=== PATIENT | female | born 1990 | race Caucasian/White ===

== ENCOUNTER 2016-05-14 11:35 | Emergency (ER) | payer OTHER ==
[~2016-05-14] VITALS: Ht 160 cm; Wt 79.4 kg
[~2016-05-14 11:35] MED LIST: ABILIFY10 MG PO; ADDERALL 30 MG30 MG PO; ADDERALL15 MG PO; ANTIBIOTIC PO; ATIVAN1 MG PO; BACTRIM DS 8001 TA1 PO; BIAXIN500 MG PO; CALCIUM + D 5001 TAB PO; CALCIUM WITH VI1 TAB PO; CARAFATE1 G1 PO; CELEXA20 MG PO; CLARITIN10 MG PO; CLEOCIN150 MG PO; CLINDAMYCIN150 MG PO; DELTASONE20 MG PO; DIFLUCAN150 MG PO; EES400 MG PO; FLEXERIL10 MG PO; HYDROCODONE BIT1 T11 PO; KENALOG0.1% TP; MACROBID100 M1 PO; MEDROL DOSEPAK4 MG PO; MOTRIN800 MG PO; NAPROSYN500 MG PO; NORCO 5-325 TA1 EACH PO; NYSTATIN100000 U/M PO; OVRAL-21 50 MCG1 TAB PO; PEPCID20 MG PO; ROBAXIN750 MG PO; ROBITUSSIN AC 10 MG/ PO; TOPCARE OMEPRAZ20 MG PO; TRAMADOL HCL50 MG PO; TYLENOL EXTRA500 M2 PO; TYLENOL W/CODEI1 TA4 PO; ULTRAM50 MG PO; VALIUM10 MG PO; VIBRAMYCIN100 MG PO; VICODIN 5/500 505 MG PO; VICODIN 500 MG-1 TAB PO; VISTARIL50 MG PO; VITAMIN D; VITAMIN D50000 I2 PO; ZITHROMAX Z PA250 MG PO; ZITHROMAX250 MG PO; ZOFRAN4 MG PO; ZOLOFT50 MG PO
[2016-05-14 12:14] LABS: BASO % 0.4 % (0.0-1.0); EOS # 0.2 10*3/uL (0.0-0.4); EOS % 2.7 % (1.0-4.0); HEMATOCRIT 42.7 % (37.0-47.0); HEMOGLOBIN 13.7 g/dl (12.0-16.0); LYMPH # 2.3 10*3/uL (1.3-4.4); LYMPH % 31.7 % (27.0-41.0); MEAN CELL VOLUME 89.3 fl (81.0-99.0); MEAN CORPUSCULAR HGB 28.7 pg (27.0-31.0); MEAN CORPUSCULAR HGB CONC 32.1 g/dl (33.0-37.0); MEAN PLATELET VOLUME 11.5 fl (9.6-12.3); MONO # 0.5 10*3/uL (0.1-1.0); MONO % 6.7 % (3.0-9.0); NEUT # 4.3 10*3/uL (2.3-7.9); NEUT % 58.2 % (47.0-73.0); PLATELET COUNT AUTOMATED 270 10*3/uL (130-400); RED BLOOD COUNT 4.78 10*6/uL (4.10-5.10); RED CELL DISTRI WIDTH 15.9 % (0-14.5); WHITE BLOOD COUNT 7.3 10*3/uL (4.8-10.8)
[2016-05-14 12:29] LABS: ALBUMIN 3.4 gm/dl (3.1-4.5); ALKALINE PHOSPHATASE 81 U/L (45-117); BILIRUBIN, TOTAL 0.4 mg/dl (0.2-1.0); BUN 9 mg/dl (7-24); CARBON DIOXIDE 27 mmol/L (21-32); CHLORIDE 108 mmol/L (98-107); EST GLOM FILT AFRICAN AMERICAN > 60 ml/min; GLUCOSE 106 mg/dL (65-99); SGOT/AST 35 IU/L (3-35); SGPT/ALT 48 U/L (12-78); SODIUM 141 mmol/L (136-145); TOTAL PROTEIN 7.1 gm/dL (6.4-8.2)
[2016-05-14] MEDS ORDERED: AVPAK AZITHROM250 M1 PO (12:43)
[2016-06-12] MEDS ORDERED: 'XANAX1 MG PO (17:17)
[2016-06-12] MEDS ORDERED: DIFLUCAN150 MG PO (19:55)
[2016-06-12] MEDS ORDERED: CIPRO250 MG PO (19:55)
[2016-06-13] MEDS ORDERED: ALPRAZOLAM0.25 M2 PO (17:44)
== END 2016-05-14 11:56 | disposition home or self-care (01) ==
LOC: ED 11:35
PROVIDERS: Registered Nurse
DX: J06.9 Acute upper respiratory infection, unspecified (principal); F17.200 Nicotine dependence, unspecified, uncomplicated; Z88.0 Allergy status to penicillin; Z88.6 Allergy status to analgesic agent; Z79.899 Other long term (current) drug therapy

== ENCOUNTER 2016-08-02 15:11 | Emergency (ER) | payer OTHER ==
[~2016-08-02] VITALS: Wt 81.6 kg
[~2016-08-02 15:11] MED LIST changes: +'XANAX1 MG PO; +ALPRAZOLAM0.25 M2 PO; +AVPAK AZITHROM250 M1 PO; +CIPRO250 MG PO
== END 2016-08-02 16:56 | disposition home or self-care (01) ==
LOC: ED 15:11
DX: S60.012A Contusion of left thumb without damage to nail, initial encounter (principal); R03.0 Elevated blood-pressure reading, without diagnosis of hypertension; F17.200 Nicotine dependence, unspecified, uncomplicated; F41.9 Anxiety disorder, unspecified; F32.9 Major depressive disorder, single episode, unspecified; F90.9 Attention-deficit hyperactivity disorder, unspecified type; Z88.0 Allergy status to penicillin; Z88.1 Allergy status to other antibiotic agents; Z88.6 Allergy status to analgesic agent; W18.09XA Striking against other object with subsequent fall, initial encounter; Y93.89 Activity, other specified; Y92.9 Unspecified place or not applicable; Y99.9 Unspecified external cause status

== ENCOUNTER 2016-09-06 11:38 | Emergency (ER) | payer OTHER ==
[~2016-09-06] VITALS: Ht 160 cm; Wt 99.8 kg
[2016-09-06] MEDS ORDERED: MEDROL DOSEPAK4 MG PO (13:20)
[2016-09-06] MEDS ORDERED: HYDROCODONE BIT1 T11 PO (13:20)
== END 2016-09-06 13:25 | disposition home or self-care (01) ==
LOC: ED 11:38
DX: S20.211A Contusion of right front wall of thorax, initial encounter (principal); F17.200 Nicotine dependence, unspecified, uncomplicated; Z88.0 Allergy status to penicillin; Z88.1 Allergy status to other antibiotic agents; Z88.6 Allergy status to analgesic agent; W18.39XA Other fall on same level, initial encounter; Y93.9 Activity, unspecified; Y92.9 Unspecified place or not applicable; Y99.9 Unspecified external cause status

== ENCOUNTER 2016-09-15 10:30 | Emergency (ER) | payer OTHER ==
[~2016-09-15] VITALS: Ht 160 cm; Wt 99.8 kg
[2016-09-15] MEDS ORDERED: XANAX0.25 MG PO (11:11)
== END 2016-09-15 15:04 | disposition home or self-care (01) ==
LOC: ED 10:30
DX: S20.211D Contusion of right front wall of thorax, subsequent encounter (principal); R03.0 Elevated blood-pressure reading, without diagnosis of hypertension; F17.200 Nicotine dependence, unspecified, uncomplicated; F90.9 Attention-deficit hyperactivity disorder, unspecified type; F41.9 Anxiety disorder, unspecified; F32.9 Major depressive disorder, single episode, unspecified; M62.82 Rhabdomyolysis; Z98.890 Other specified postprocedural states; Z98.51 Tubal ligation status; Z90.89 Acquired absence of other organs; Z88.0 Allergy status to penicillin; Z88.6 Allergy status to analgesic agent; Z88.8 Allergy status to other drugs, medicaments and biological substances; W19.XXXD Unspecified fall, subsequent encounter

== ENCOUNTER 2016-09-19 17:26 | Emergency (ER) | payer OTHER ==
[~2016-09-19] VITALS: Ht 160 cm; Wt 99.8 kg
[~2016-09-19 17:26] MED LIST changes: +XANAX0.25 MG PO
[2016-09-19] MEDS ORDERED: ZITHROMAX250 MG PO (18:59)
[2016-09-19] MEDS ORDERED: TYLENOL325 M1 PO (19:10)
== END 2016-09-19 18:47 | disposition home or self-care (01) ==
LOC: ED 17:26
DX: S83.92XA Sprain of unspecified site of left knee, initial encounter (principal); J02.9 Acute pharyngitis, unspecified; F17.200 Nicotine dependence, unspecified, uncomplicated; Z88.0 Allergy status to penicillin; Z88.1 Allergy status to other antibiotic agents; Z88.2 Allergy status to sulfonamides; Z88.6 Allergy status to analgesic agent; Z79.899 Other long term (current) drug therapy; W10.9XXA Fall (on) (from) unspecified stairs and steps, initial encounter; Y93.89 Activity, other specified; Y92.9 Unspecified place or not applicable; Y99.9 Unspecified external cause status

== ENCOUNTER 2016-10-21 14:37 | Emergency (ER) | payer OTHER ==
[~2016-10-21] VITALS: Ht 160 cm; Wt 81.6 kg
[~2016-10-21 14:37] MED LIST changes: +TYLENOL325 M1 PO
== END 2016-10-21 15:44 | disposition home or self-care (01) ==
LOC: ED 14:37
DX: M79.672 Pain in left foot (principal); F17.200 Nicotine dependence, unspecified, uncomplicated; Z98.890 Other specified postprocedural states; Z98.51 Tubal ligation status; Z88.0 Allergy status to penicillin; Z88.6 Allergy status to analgesic agent; Z88.8 Allergy status to other drugs, medicaments and biological substances

== ENCOUNTER 2016-10-26 19:39 | Emergency (ER) | payer OTHER ==
[~2016-10-26] VITALS: Ht 160 cm; Wt 83.9 kg
[2016-10-26] MEDS ORDERED: MEDROL DOSEPAK4 MG PO (21:51)
[2016-10-26] MEDS ORDERED: LIDEX 0.05% CRE15 GM T (21:51)
== END 2016-10-26 21:59 | disposition home or self-care (01) ==
LOC: ED 19:39
DX: M79.672 Pain in left foot (principal); R21 Rash and other nonspecific skin eruption; R51 Headache; F17.200 Nicotine dependence, unspecified, uncomplicated; Z98.890 Other specified postprocedural states; Z98.51 Tubal ligation status; Z90.89 Acquired absence of other organs; Z88.0 Allergy status to penicillin; Z88.6 Allergy status to analgesic agent; Z88.1 Allergy status to other antibiotic agents; Z88.8 Allergy status to other drugs, medicaments and biological substances; Y08.89XA Assault by other specified means, initial encounter; Y93.89 Activity, other specified; Y92.89 Other specified places as the place of occurrence of the external cause; Y99.9 Unspecified external cause status

== ENCOUNTER 2016-11-14 19:08 | Emergency (ER) | payer OTHER ==
[~2016-11-14] VITALS: Ht 160 cm; Wt 81.6 kg
[~2016-11-14 19:08] MED LIST changes: +LIDEX 0.05% CRE15 GM T
[2016-11-14] MEDS ORDERED: DOXYCYCLINE100 MG PO (19:31)
== END 2016-11-14 20:03 | disposition home or self-care (01) ==
LOC: ED 19:08
DX: L03.114 Cellulitis of left upper limb (principal); L03.113 Cellulitis of right upper limb; F17.200 Nicotine dependence, unspecified, uncomplicated; F90.9 Attention-deficit hyperactivity disorder, unspecified type; Z88.0 Allergy status to penicillin; Z88.1 Allergy status to other antibiotic agents; Z88.2 Allergy status to sulfonamides; Z88.6 Allergy status to analgesic agent; Z79.899 Other long term (current) drug therapy

== ENCOUNTER 2016-11-23 19:50 | Emergency (ER) | payer OTHER ==
[~2016-11-23] VITALS: Ht 160 cm; Wt 99.8 kg
[~2016-11-23 19:50] MED LIST changes: +DOXYCYCLINE100 MG PO
== END 2016-11-23 22:37 | disposition left against medical advice (07) ==
LOC: ED 19:50
DX: R22.9 Localized swelling, mass and lump, unspecified (principal); L29.9 Pruritus, unspecified; F17.200 Nicotine dependence, unspecified, uncomplicated; Z88.0 Allergy status to penicillin; Z88.1 Allergy status to other antibiotic agents; Z88.2 Allergy status to sulfonamides; Z88.6 Allergy status to analgesic agent; Z53.21 Procedure and treatment not carried out due to patient leaving prior to being seen by health care provider

== ENCOUNTER 2016-12-04 08:55 | Emergency (ER) | payer OTHER ==
[~2016-12-04] VITALS: Ht 160 cm; Wt 99.8 kg
== END 2016-12-04 10:46 | disposition left against medical advice (07) ==
LOC: ED 08:55
DX: S33.5XXA Sprain of ligaments of lumbar spine, initial encounter (principal); F17.200 Nicotine dependence, unspecified, uncomplicated; Z88.0 Allergy status to penicillin; Z88.1 Allergy status to other antibiotic agents; Z88.6 Allergy status to analgesic agent; X58.XXXA Exposure to other specified factors, initial encounter; Y93.9 Activity, unspecified; Y92.9 Unspecified place or not applicable; Y99.9 Unspecified external cause status

== ENCOUNTER 2017-02-12 19:30 | Emergency (ER) | payer OTHER ==
[~2017-02-12] VITALS: Wt 110.7 kg
[2017-02-12 20:02] LABS: BASO # 0.1 10*3/uL (0.0-0.1); BASO % 0.3 % (0.0-1.0); EOS # 0.2 10*3/uL (0.0-0.4); EOS % 1.3 % (1.0-4.0); HEMATOCRIT 40.8 % (37.0-47.0); HEMOGLOBIN 13.1 g/dl (12.0-16.0); LYMPH % 20.8 % (27.0-41.0); MEAN CELL VOLUME 90.5 fl (81.0-99.0); MEAN CORPUSCULAR HGB CONC 32.1 g/dl (33.0-37.0); MEAN PLATELET VOLUME 11.7 fl (9.6-12.3); NEUT # 10.1 10*3/uL (2.3-7.9); NEUT % 70.3 % (47.0-73.0); PLATELET COUNT AUTOMATED 346 10*3/uL (130-400); RED BLOOD COUNT 4.51 10*6/uL (4.10-5.10); RED CELL DISTRI WIDTH 17.7 % (0-14.5); WHITE BLOOD COUNT 14.3 10*3/uL (4.8-10.8)
[2017-02-12 20:12] LABS: ACT PARTIAL THROMBO TIME 27.5 SECONDS (20.8-31.5)
[2017-02-12 20:23] LABS: ALBUMIN 3.5 gm/dl (3.1-4.5); ALKALINE PHOSPHATASE 84 U/L (45-117); BUN 12 mg/dl (7-24); CHLORIDE 108 mmol/L (98-107); CREATININE 0.89 mg/dL (0.55-1.02); LIPASE 248 U/L (73-393); MAGNESIUM 2.2 mg/dL (1.5-2.1); POTASSIUM 4.1 mmol/L (3.5-5.1); SGOT/AST 21 IU/L (3-35); SGPT/ALT 37 U/L (12-78); SODIUM 140 mmol/L (136-145); TOTAL PROTEIN 7.8 gm/dL (6.4-8.2)
[2017-02-12 20:28] LABS: TROPONIN I < 0.015 ng/ml (<0.045)
== END 2017-02-12 21:29 | disposition left against medical advice (07) ==
LOC: ED 19:30
PROVIDERS: Nurse Practitioner Family
DX: R07.89 Other chest pain (principal); F17.200 Nicotine dependence, unspecified, uncomplicated; F90.9 Attention-deficit hyperactivity disorder, unspecified type; F41.9 Anxiety disorder, unspecified; F32.9 Major depressive disorder, single episode, unspecified; K21.9 Gastro-esophageal reflux disease without esophagitis; Z90.89 Acquired absence of other organs; Z98.890 Other specified postprocedural states; Z98.51 Tubal ligation status; Z88.0 Allergy status to penicillin; Z88.6 Allergy status to analgesic agent; Z88.1 Allergy status to other antibiotic agents; Z88.8 Allergy status to other drugs, medicaments and biological substances

== ENCOUNTER 2017-04-12 19:06 | Emergency (ER) | payer OTHER ==
[~2017-04-12] VITALS: Ht 160 cm; Wt 99.8 kg
[2017-04-12 19:47] LABS: BILIRUBIN NEGATIVE (NEGATIVE); BLOOD TRACE-INTACT (NEGATIVE); CLARITY SL CLOUDY (CLEAR); COLOR YELLOW (YELLOW); GLUCOSE NEGATIVE (NEGATIVE); KETONE TRACE (NEGATIVE); LEUKO ESTERASE 3+ (NEGATIVE); NITRITE NEGATIVE (NEGATIVE); PH 6.5 (5.0-9.0)
[2017-04-12 19:58] LABS: BASO % 0.3 % (0.0-1.0); EOS # 0.2 10*3/uL (0.0-0.4); EOS % 2.1 % (1.0-4.0); HEMATOCRIT 39.4 % (37.0-47.0); HEMOGLOBIN 12.7 g/dl (12.0-16.0); LYMPH # 2.2 10*3/uL (1.3-4.4); LYMPH % 24.7 % (27.0-41.0); MEAN CELL VOLUME 88.7 fl (81.0-99.0); MEAN CORPUSCULAR HGB 28.6 pg (27.0-31.0); MEAN CORPUSCULAR HGB CONC 32.2 g/dl (33.0-37.0); MEAN PLATELET VOLUME 11.5 fl (9.6-12.3); MONO # 0.6 10*3/uL (0.1-1.0); MONO % 7.2 % (3.0-9.0); NEUT # 5.8 10*3/uL (2.3-7.9); NEUT % 65.4 % (47.0-73.0); PLATELET COUNT AUTOMATED 352 10*3/uL (130-400); RED BLOOD COUNT 4.44 10*6/uL (4.10-5.10); RED CELL DISTRI WIDTH 14.5 % (0-14.5); WHITE BLOOD COUNT 8.9 10*3/uL (4.8-10.8)
[2017-04-12 19:58] LABS: BACTERIA 2+; EPITHELIAL CELLS 51-100
[2017-04-12 20:05] LABS: WBC 51-100 wbc/hpf (0-5)
[2017-04-12 20:13] LABS: ALBUMIN 3.6 gm/dl (3.1-4.5); ALKALINE PHOSPHATASE 66 U/L (45-117); BUN 8 mg/dl (7-24); CHLORIDE 102 mmol/L (98-107); CREATININE 0.74 mg/dL (0.55-1.02); POTASSIUM 3.6 mmol/L (3.5-5.1); SGOT/AST 31 IU/L (3-35); SGPT/ALT 32 U/L (12-78); SODIUM 139 mmol/L (136-145); TOTAL PROTEIN 7.4 gm/dL (6.4-8.2)
[2017-04-12 20:16] LABS: URINE AMPHETAMINES < 1000 (1000ng/ml); URINE BARBITURATES < 200 (200ng/ml); URINE BENZODIAZEPINES > 200 (200ng/ml); URINE CANNABINOIDS (THC) > 50 (50ng/ml); URINE COCAINE < 300 (300ng/ml); URINE METHADONE < 300 (300ng/ml); URINE OPIATES < 300 (300ng/ml); URINE PHENCYCLIDINE < 25 (25ng/ml)
[2017-04-12] MEDS ORDERED: FLAGYL500 MG PO (20:48)
[2017-04-12] MEDS ORDERED: ZOFRAN ODT4 MG SL (20:48)
[2017-04-12] MEDS ORDERED: CYCLOBENZAPRINE10 MG PO (20:49)
== END 2017-04-12 21:45 | disposition home or self-care (01) ==
LOC: ED 19:06
PROVIDERS: Emergency Medicine
DX: A59.9 Trichomoniasis, unspecified (principal); M54.32 Sciatica, left side; R11.2 Nausea with vomiting, unspecified; R50.9 Fever, unspecified; R53.1 Weakness; G43.909 Migraine, unspecified, not intractable, without status migrainosus; F17.200 Nicotine dependence, unspecified, uncomplicated; Z88.0 Allergy status to penicillin; Z88.1 Allergy status to other antibiotic agents; Z88.6 Allergy status to analgesic agent

== ENCOUNTER 2017-05-20 13:08 | Inpatient (IN) | payer SELFPAY ==
[~2017-05-20] VITALS: Ht 162.6 cm; Wt 112.7 kg
[2017-05-20] VITALS (14 sets, daily range): BP systolic 70–120; BP diastolic 19–84
[~2017-05-20 13:08] MED LIST changes: +CYCLOBENZAPRINE10 MG PO; +FLAGYL500 MG PO; +ZOFRAN ODT4 MG SL
[2017-05-20 13:33] LABS: BASO % 0.3 % (0.0-1.0); EOS # 0.1 10*3/uL (0.0-0.4); EOS % 1.1 % (1.0-4.0); HEMATOCRIT 39.4 % (37.0-47.0); HEMOGLOBIN 12.8 g/dl (12.0-16.0); LYMPH # 2.5 10*3/uL (1.3-4.4); MEAN CELL VOLUME 87.6 fl (81.0-99.0); MEAN CORPUSCULAR HGB 28.4 pg (27.0-31.0); MEAN CORPUSCULAR HGB CONC 32.5 g/dl (33.0-37.0); MEAN PLATELET VOLUME 10.9 fl (9.6-12.3); MONO # 0.7 10*3/uL (0.1-1.0); MONO % 6.1 % (3.0-9.0); NEUT % 70.2 % (47.0-73.0); PLATELET COUNT AUTOMATED 312 10*3/uL (130-400); WHITE BLOOD COUNT 11.4 10*3/uL (4.8-10.8)
[2017-05-20 13:41] LABS: ACT PARTIAL THROMBO TIME 26.5 SECONDS (20.8-31.5)
[2017-05-20 13:43] LABS: LIPASE 160 U/L (73-393)
[2017-05-20 13:51] LABS: ALBUMIN 3.9 gm/dl (3.1-4.5); ALKALINE PHOSPHATASE 93 U/L (45-117); BUN 13 mg/dl (7-24); CHLORIDE 103 mmol/L (98-107); CREATININE 0.87 mg/dL (0.55-1.02); POTASSIUM 4.1 mmol/L (3.5-5.1); SGOT/AST 17 IU/L (3-35); SGPT/ALT 28 U/L (12-78); SODIUM 139 mmol/L (136-145); TOTAL PROTEIN 7.6 gm/dL (6.4-8.2)
[2017-05-20 13:52] LABS: TROPONIN I < 0.015 ng/ml (<0.045)
[2017-05-20 15:54] LABS: BILIRUBIN NEGATIVE (NEGATIVE); BLOOD NEGATIVE (NEGATIVE); CLARITY CLEAR (CLEAR); COLOR YELLOW (YELLOW); GLUCOSE NEGATIVE (NEGATIVE); KETONE NEGATIVE (NEGATIVE); LEUKO ESTERASE NEGATIVE (NEGATIVE); NITRITE NEGATIVE (NEGATIVE); PH 5.5 (5.0-9.0); SPECIFIC GRAVITY <= 1.005 (1.005-1.030); UROBILINOGEN 0.2 E.U./dl (0.2-1.0)
[2017-05-20 16:03] LABS: URINE AMPHETAMINES < 1000 (1000ng/ml); URINE BARBITURATES < 200 (200ng/ml); URINE BENZODIAZEPINES < 200 (200ng/ml); URINE CANNABINOIDS (THC) < 50 (50ng/ml); URINE COCAINE < 300 (300ng/ml); URINE METHADONE < 300 (300ng/ml); URINE OPIATES < 300 (300ng/ml)
[2017-05-20 16:04] LABS: URINE PHENCYCLIDINE < 25 (25ng/ml)
[2017-05-20 16:07] LABS: WBC 0-2 wbc/hpf (0-5)
[2017-05-20] MEDS ORDERED: ALPRAZOLAM0.5 M3 PO (21:58)
[2017-05-20] MEDS ORDERED: TRAZODONE50 MG PO (21:59)
[2017-05-21] VITALS: BP 100/50
[2017-05-21 04:00] VITALS: BP 100/52
[2017-05-21 05:59] LABS: BASO % 0.3 % (0.0-1.0); EOS # 0.2 10*3/uL (0.0-0.4); EOS % 1.9 % (1.0-4.0); HEMOGLOBIN 11.6 g/dl (12.0-16.0); LYMPH # 3.2 10*3/uL (1.3-4.4); LYMPH % 37.1 % (27.0-41.0); MEAN CELL VOLUME 88.5 fl (81.0-99.0); MEAN CORPUSCULAR HGB 28.5 pg (27.0-31.0); MEAN CORPUSCULAR HGB CONC 32.2 g/dl (33.0-37.0); MEAN PLATELET VOLUME 11.2 fl (9.6-12.3); MONO # 0.6 10*3/uL (0.1-1.0); NEUT # 4.7 10*3/uL (2.3-7.9); NEUT % 53.4 % (47.0-73.0); PLATELET COUNT AUTOMATED 268 10*3/uL (130-400); RED BLOOD COUNT 4.07 10*6/uL (4.10-5.10); RED CELL DISTRI WIDTH 15.9 % (0-14.5); WHITE BLOOD COUNT 8.7 10*3/uL (4.8-10.8)
[2017-05-21 06:13] LABS: ALBUMIN 3.1 gm/dl (3.1-4.5); BUN 8 mg/dl (7-24); CHLORIDE 110 mmol/L (98-107); CHOLESTEROL 125 mg/dL (<200); CREATININE 0.63 mg/dL (0.55-1.02); PHOSPHOROUS 4.4 mg/dL (2.5-4.9); POTASSIUM 3.9 mmol/L (3.5-5.1); SGOT/AST 14 IU/L (3-35); SGPT/ALT 20 U/L (12-78); SODIUM 143 mmol/L (136-145); TOTAL PROTEIN 6.2 gm/dL (6.4-8.2); TRIGLYCERIDES 96 mg/dl (<150); VLDL CHOLESTEROL 19 mg/dL (6-40)
[2017-05-21 06:17] LABS: ACT PARTIAL THROMBO TIME 27.7 SECONDS (20.8-31.5)
[2017-05-21 06:19] LABS: ALKALINE PHOSPHATASE 74 U/L (45-117); FREE T4 1.03 ng/dl (0.76-1.46); HDL CHOLESTEROL 37 mg/dl (40-60); LDL CHOLESTEROL 69 mg/dL (9-159)
[2017-05-21 08:00] VITALS: BP 90/34
[2017-05-21 08:14] LABS: VITAMIN D, 25-HYDROXY 12.4 ng/mL (30-100)
[2017-05-21 12:00] VITALS: BP 88/43
[2017-05-21] MEDS ORDERED: VISTARIL25 MG PO (15:52)
[2017-05-21] MEDS ORDERED: VITAMIN D-32000 UNIT PO (15:52)
[2017-05-21] MEDS ORDERED: NATURE'S BLEND F1 MG PO (15:52)
[2017-05-21 16:00] VITALS: BP 109/63
== END 2017-05-21 17:00 | disposition home or self-care (01) | DRG 316 ==
LOC: ED 13:08 → ICCU 17:06 → EDHOLD 17:06 → ICCU 19:13 → 4E 05-21 12:41
PROVIDERS: Internal Medicine; Physician Assistant
DX: I95.9 Hypotension, unspecified (principal); E87.8 Other disorders of electrolyte and fluid balance, not elsewhere classified; R07.9 Chest pain, unspecified; F32.9 Major depressive disorder, single episode, unspecified; F41.9 Anxiety disorder, unspecified; R06.82 Tachypnea, not elsewhere classified; D64.9 Anemia, unspecified; F17.210 Nicotine dependence, cigarettes, uncomplicated; E55.9 Vitamin D deficiency, unspecified; E53.8 Deficiency of other specified B group vitamins; D72.829 Elevated white blood cell count, unspecified; Z88.0 Allergy status to penicillin; Z88.2 Allergy status to sulfonamides; Z88.6 Allergy status to analgesic agent; Z88.8 Allergy status to other drugs, medicaments and biological substances; Z79.899 Other long term (current) drug therapy; Z98.51 Tubal ligation status; Z82.0 Family history of epilepsy and other diseases of the nervous system; Z80.9 Family history of malignant neoplasm, unspecified

== ENCOUNTER 2017-05-30 01:19 | Emergency (ER) | payer OTHER ==
[~2017-05-30] VITALS: Ht 162.5 cm; Wt 108.9 kg
[~2017-05-30 01:19] MED LIST changes: +ALPRAZOLAM0.5 M3 PO; +NATURE'S BLEND F1 MG PO; +TRAZODONE50 MG PO; +VISTARIL25 MG PO; +VITAMIN D-32000 UNIT PO
[2017-05-30 02:09] LABS: BILIRUBIN NEGATIVE (NEGATIVE); BLOOD 2+ (NEGATIVE); CLARITY SL CLOUDY (CLEAR); COLOR YELLOW (YELLOW); GLUCOSE NEGATIVE (NEGATIVE); KETONE TRACE (NEGATIVE); LEUKO ESTERASE NEGATIVE (NEGATIVE); NITRITE NEGATIVE (NEGATIVE); PH 5.5 (5.0-9.0); SPECIFIC GRAVITY 1.025 (1.005-1.030); UROBILINOGEN 0.2 E.U./dl (0.2-1.0)
[2017-05-30 02:13] LABS: EPITHELIAL CELLS 15-20
[2017-05-30 02:14] LABS: BACTERIA TRACE
[2017-05-30] MEDS ORDERED: PRILOSEC20 M1 PO (02:18)
[2017-05-30] MEDS ORDERED: ZOFRAN ODT4 MG SL (02:18)
[2017-05-30] MEDS ORDERED: ATARAX,VISTARIL50 MG PO (02:18)
== END 2017-05-30 03:00 | disposition home or self-care (01) ==
LOC: ED 01:19
PROVIDERS: Emergency Medicine Emergency Medical Services
DX: K21.9 Gastro-esophageal reflux disease without esophagitis (principal); G43.909 Migraine, unspecified, not intractable, without status migrainosus; R11.0 Nausea; F41.9 Anxiety disorder, unspecified; F17.200 Nicotine dependence, unspecified, uncomplicated; Z98.51 Tubal ligation status; Z98.890 Other specified postprocedural states; Z79.899 Other long term (current) drug therapy; Z88.0 Allergy status to penicillin; Z88.6 Allergy status to analgesic agent; Z88.1 Allergy status to other antibiotic agents; Z88.8 Allergy status to other drugs, medicaments and biological substances

== ENCOUNTER 2017-08-03 21:00 | Emergency (ER) | payer OTHER ==
[~2017-08-03] VITALS: Ht 160 cm; Wt 111.6 kg
[~2017-08-03 21:00] MED LIST changes: +ATARAX,VISTARIL50 MG PO; +PRILOSEC20 M1 PO
[2017-08-03 21:20] LABS: BILIRUBIN NEGATIVE (NEGATIVE); BLOOD NEGATIVE (NEGATIVE); CLARITY CLEAR (CLEAR); COLOR YELLOW (YELLOW); GLUCOSE NEGATIVE (NEGATIVE); KETONE NEGATIVE (NEGATIVE); LEUKO ESTERASE NEGATIVE (NEGATIVE); NITRITE NEGATIVE (NEGATIVE); PH 5.5 (5.0-9.0); SPECIFIC GRAVITY <= 1.005 (1.005-1.030); UROBILINOGEN 0.2 E.U./dl (0.2-1.0)
[2017-08-03 21:29] LABS: URINE AMPHETAMINES < 1000 (1000ng/ml); URINE BARBITURATES < 200 (200ng/ml); URINE BENZODIAZEPINES > 200 (200ng/ml); URINE CANNABINOIDS (THC) < 50 (50ng/ml); URINE COCAINE < 300 (300ng/ml); URINE METHADONE < 300 (300ng/ml); URINE OPIATES < 300 (300ng/ml)
[2017-08-03 21:30] LABS: URINE PHENCYCLIDINE < 25 (25ng/ml)
[2017-08-03 21:33] LABS: BACTERIA 1+; RBC 0-2 rbc/hpf (0-2); WBC 0-2 wbc/hpf (0-5)
[2017-08-03 21:52] LABS: BASO % 0.4 % (0.0-1.0); EOS # 0.2 10*3/uL (0.0-0.4); HEMATOCRIT 36.8 % (37.0-47.0); HEMOGLOBIN 11.7 g/dl (12.0-16.0); LYMPH # 2.6 10*3/uL (1.3-4.4); LYMPH % 23.7 % (27.0-41.0); MEAN CELL VOLUME 86.6 fl (81.0-99.0); MEAN CORPUSCULAR HGB 27.5 pg (27.0-31.0); MEAN CORPUSCULAR HGB CONC 31.8 g/dl (33.0-37.0); MEAN PLATELET VOLUME 10.7 fl (9.6-12.3); MONO # 0.7 10*3/uL (0.1-1.0); MONO % 6.5 % (3.0-9.0); NEUT # 7.3 10*3/uL (2.3-7.9); PLATELET COUNT AUTOMATED 362 10*3/uL (130-400); RED BLOOD COUNT 4.25 10*6/uL (4.10-5.10); RED CELL DISTRI WIDTH 16.1 % (0-14.5); WHITE BLOOD COUNT 10.9 10*3/uL (4.8-10.8)
[2017-08-03 22:07] LABS: ACETAMINOPHEN (TYLENOL) < 2.0 ug/ml (10-30); ALBUMIN 3.6 gm/dl (3.1-4.5); ALKALINE PHOSPHATASE 89 U/L (45-117); BUN 6 mg/dl (7-24); CHLORIDE 107 mmol/L (98-107); CREATININE 0.78 mg/dL (0.55-1.02); POTASSIUM 3.1 mmol/L (3.5-5.1); SGOT/AST 24 IU/L (3-35); SGPT/ALT 36 U/L (12-78); SODIUM 142 mmol/L (136-145); TOTAL PROTEIN 7.6 gm/dL (6.4-8.2)
[2017-08-03 22:15] LABS: B-hCG (QUALITATIVE) NEGATIVE (NEGATIVE)
[2017-08-03] MEDS ORDERED: PHARBEDRYL PO (23:08)
[2017-08-03] MEDS ORDERED: KETOROLAC10 MG PO (23:17)
== END 2017-08-03 23:18 | disposition home or self-care (01) ==
LOC: ED 21:00
PROVIDERS: Emergency Medicine Emergency Medical Services
DX: F41.1 Generalized anxiety disorder (principal); F43.0 Acute stress reaction; F90.9 Attention-deficit hyperactivity disorder, unspecified type; F32.9 Major depressive disorder, single episode, unspecified; K21.9 Gastro-esophageal reflux disease without esophagitis; E78.00 Pure hypercholesterolemia, unspecified; G43.909 Migraine, unspecified, not intractable, without status migrainosus; E66.01 Morbid (severe) obesity due to excess calories; F17.200 Nicotine dependence, unspecified, uncomplicated; Z98.890 Other specified postprocedural states; Z98.51 Tubal ligation status; Z90.89 Acquired absence of other organs; Z79.899 Other long term (current) drug therapy; Z88.0 Allergy status to penicillin; Z88.6 Allergy status to analgesic agent; Z88.8 Allergy status to other drugs, medicaments and biological substances

== ENCOUNTER 2017-10-22 15:43 | Emergency (ER) | payer OTHER ==
[~2017-10-22] VITALS: Ht 160 cm; Wt 113.4 kg
[~2017-10-22 15:43] MED LIST changes: +KETOROLAC10 MG PO; +PHARBEDRYL PO
[2017-10-22] MEDS ORDERED: PREDNISONE10 MG PO (16:00)
[2017-10-22 16:15] LABS: BASO # 0.1 10*3/uL (0.0-0.1); BASO % 0.6 % (0.0-1.0); EOS # 0.3 10*3/uL (0.0-0.4); EOS % 2.6 % (1.0-4.0); HEMATOCRIT 39.3 % (37.0-47.0); LYMPH # 3.5 10*3/uL (1.3-4.4); MEAN CELL VOLUME 83.3 fl (81.0-99.0); MEAN CORPUSCULAR HGB 25.4 pg (27.0-31.0); MEAN CORPUSCULAR HGB CONC 30.5 g/dl (33.0-37.0); MEAN PLATELET VOLUME 12.4 fl (9.6-12.3); MONO # 0.8 10*3/uL (0.1-1.0); MONO % 7.4 % (3.0-9.0); NEUT # 5.6 10*3/uL (2.3-7.9); NEUT % 55.1 % (47.0-73.0); PLATELET COUNT AUTOMATED 266 10*3/uL (130-400); RED BLOOD COUNT 4.72 10*6/uL (4.10-5.10); RED CELL DISTRI WIDTH 18.6 % (0-14.5); WHITE BLOOD COUNT 10.2 10*3/uL (4.8-10.8)
[2017-10-22 16:29] LABS: ALBUMIN 3.6 gm/dl (3.1-4.5); ALKALINE PHOSPHATASE 87 U/L (45-117); BUN 8 mg/dl (7-24); CHLORIDE 104 mmol/L (98-107); CREATININE 0.74 mg/dL (0.55-1.02); POTASSIUM 3.3 mmol/L (3.5-5.1); SGOT/AST 30 IU/L (3-35); SGPT/ALT 38 U/L (12-78); SODIUM 139 mmol/L (136-145); TOTAL PROTEIN 7.2 gm/dL (6.4-8.2)
== END 2017-10-22 17:07 | disposition home or self-care (01) ==
LOC: ED 15:43
PROVIDERS: Nurse Practitioner Family
DX: L30.9 Dermatitis, unspecified (principal); M79.631 Pain in right forearm; Z88.0 Allergy status to penicillin; Z88.1 Allergy status to other antibiotic agents; Z88.6 Allergy status to analgesic agent

== ENCOUNTER 2017-11-06 19:36 | Emergency (ER) | payer OTHER ==
[~2017-11-06] VITALS: Ht 160 cm; Wt 111.1 kg
[~2017-11-06 19:36] MED LIST changes: +PREDNISONE10 MG PO
[2017-11-06] MEDS ORDERED: ZITHROMAX250 MG PO (20:14)
== END 2017-11-06 20:20 | disposition home or self-care (01) ==
LOC: ED 19:36
DX: J02.9 Acute pharyngitis, unspecified (principal); R05 Cough; R50.9 Fever, unspecified; F17.200 Nicotine dependence, unspecified, uncomplicated; Z88.0 Allergy status to penicillin; Z88.1 Allergy status to other antibiotic agents; Z88.6 Allergy status to analgesic agent

== ENCOUNTER 2018-01-08 12:28 | Emergency (ER) | payer OTHER ==
[~2018-01-08] VITALS: Ht 160 cm; Wt 102.1 kg
--- NOTE | ~2018-01-08 | EKG ---
[place], [place] ELECTROCARDIOGRAM REPORT NAME: SUJIT HOPE UNIT #: [id number] ROOM: DOCTOR: EPIPHANY DRAFT REPORT BIRTHDATE: [birth year] [facility] Test Date: 2018-01-08 Test Time: 13:09:37 Pat Name: SUJIT HOPE Department: Room: Gender: F Supervisor Metalizing: Marci Lujan : 1990 Requested By: SUNSHINE ARRIAGA Order Number: [id number] Reading MD: Christine Freedman MD Measurements Intervals [place] Rate: 61 P: 16 OK: 132 QRS: 103 QRSD: 99 T: 19 QT: 435 QTc: 439 Interpretive Statements Sinus rhythm Borderline right axis deviation Low voltage, precordial leads Electronically Signed On 01-08-2018 16:51:49 PDT by Christine Freedman MD CM:EKGRPT:ELECTROCARDIOGRAM REPORT [id number] SUNSHINE ARRIAGA EPIPHANY DRAFT REPORT SUNSHINE ARRIAGA
[2018-01-08 13:18] LABS: BASO % 0.4 % (0.0-1.0); EOS # 0.1 10*3/uL (0.0-0.4); EOS % 1.4 % (1.0-4.0); HEMOGLOBIN 12.4 g/dl (12.0-16.0); LYMPH # 2.2 10*3/uL (1.3-4.4); LYMPH % 21.1 % (27.0-41.0); MEAN CELL VOLUME 85.1 fl (81.0-99.0); MEAN CORPUSCULAR HGB 26.4 pg (27.0-31.0); MEAN PLATELET VOLUME 11.5 fl (9.6-12.3); MONO # 0.5 10*3/uL (0.1-1.0); MONO % 4.8 % (3.0-9.0); NEUT # 7.4 10*3/uL (2.3-7.9); NEUT % 71.9 % (47.0-73.0); PLATELET COUNT AUTOMATED 295 10*3/uL (130-400); RED CELL DISTRI WIDTH 20.2 % (0-14.5); WHITE BLOOD COUNT 10.3 10*3/uL (4.8-10.8)
[2018-01-08 13:24] LABS: BILIRUBIN NEGATIVE (NEGATIVE); BLOOD NEGATIVE (NEGATIVE); CLARITY CLEAR (CLEAR); COLOR YELLOW (YELLOW); GLUCOSE NEGATIVE (NEGATIVE); KETONE NEGATIVE (NEGATIVE); LEUKO ESTERASE NEGATIVE (NEGATIVE); NITRITE NEGATIVE (NEGATIVE); PH 6.5 (5.0-9.0); SPECIFIC GRAVITY <= 1.005 (1.005-1.030); UROBILINOGEN 0.2 E.U./dl (0.2-1.0)
[2018-01-08 13:35] LABS: URINE AMPHETAMINES < 1000 (1000ng/ml); URINE BARBITURATES < 200 (200ng/ml); URINE BENZODIAZEPINES < 200 (200ng/ml); URINE CANNABINOIDS (THC) > 50 (50ng/ml); URINE COCAINE < 300 (300ng/ml); URINE METHADONE < 300 (300ng/ml); URINE OPIATES < 300 (300ng/ml)
[2018-01-08 13:38] LABS: ALBUMIN 3.3 gm/dl (3.1-4.5); ALKALINE PHOSPHATASE 89 U/L (45-117); BUN 2 mg/dl (7-24); CHLORIDE 107 mmol/L (98-107); CREATININE 0.81 mg/dL (0.55-1.02); POTASSIUM 3.5 mmol/L (3.5-5.1); SGOT/AST 15 IU/L (3-35); SGPT/ALT 23 U/L (12-78); SODIUM 141 mmol/L (136-145); TOTAL PROTEIN 7.2 gm/dL (6.4-8.2)
[2018-01-08 13:39] LABS: URINE PHENCYCLIDINE < 25 (25ng/ml)
[2018-01-08 13:41] LABS: TROPONIN I < 0.015 ng/ml (<0.045)
[2018-01-08 13:52] LABS: BACTERIA TRACE
[2018-01-08] MEDS ORDERED: CLINDAMYCIN HC300 MG PO (14:35)
[2018-04-09] MEDS ORDERED: XANAX1 MG PO (10:50)
[2018-04-09] MEDS ORDERED: AMPHETAMINE/DEX30 MG PO (10:50)
[2018-04-09] MEDS ORDERED: REXULTI1 MG PO (10:51)
[2018-04-09] MEDS ORDERED: TRAZODONE150 MG PO (10:51)
[2018-04-09] MEDS ORDERED: SUBOXONE 8 MG-1 EACH SL (10:52)
[2018-04-09] MEDS ORDERED: ZOLOFT100 MG PO (12:06)
[2018-04-10] MEDS ORDERED: NORCO 5-325 TA1 EACH PO (16:12)
== END 2018-01-08 14:42 | disposition home or self-care (01) ==
LOC: ED 12:28
PROVIDERS: Nurse Practitioner Family
DX: L02.416 Cutaneous abscess of left lower limb (principal); R51 Headache; R07.9 Chest pain, unspecified; F17.200 Nicotine dependence, unspecified, uncomplicated; Z88.0 Allergy status to penicillin; Z88.1 Allergy status to other antibiotic agents; Z88.6 Allergy status to analgesic agent

== ENCOUNTER 2018-01-12 10:11 | Emergency (ER) | payer OTHER ==
[~2018-01-12] VITALS: Ht 160 cm; Wt 102.1 kg
[~2018-01-12 10:11] MED LIST changes: +CLINDAMYCIN HC300 MG PO
[2018-04-09] MEDS ORDERED: AMPHETAMINE/DEX30 MG PO (10:50)
[2018-04-09] MEDS ORDERED: XANAX1 MG PO (10:50)
[2018-04-09] MEDS ORDERED: REXULTI1 MG PO (10:51)
[2018-04-09] MEDS ORDERED: TRAZODONE150 MG PO (10:51)
[2018-04-09] MEDS ORDERED: SUBOXONE 8 MG-1 EACH SL (10:52)
[2018-04-09] MEDS ORDERED: ZOLOFT100 MG PO (12:06)
[2018-04-10] MEDS ORDERED: NORCO 5-325 TA1 EACH PO (16:12)
== END 2018-01-12 11:13 | disposition home or self-care (01) ==
LOC: ED 10:11
DX: J02.9 Acute pharyngitis, unspecified (principal); R03.0 Elevated blood-pressure reading, without diagnosis of hypertension; K21.9 Gastro-esophageal reflux disease without esophagitis; G43.909 Migraine, unspecified, not intractable, without status migrainosus; E66.01 Morbid (severe) obesity due to excess calories; Z88.0 Allergy status to penicillin; Z88.1 Allergy status to other antibiotic agents; Z88.6 Allergy status to analgesic agent; Z87.891 Personal history of nicotine dependence

== ENCOUNTER 2018-01-23 04:42 | Emergency (ER) | payer OTHER ==
[~2018-01-23] VITALS: Ht 161.2 cm; Wt 99.8 kg
--- NOTE | ~2018-01-23 | EKG ---
[place], [place] ELECTROCARDIOGRAM REPORT NAME: SUJIT HOPE UNIT #: [id number] ROOM: DOCTOR: EPIPHANY DRAFT REPORT BIRTHDATE: [birth year] [facility] Test Date: 2018-01-23 Test Time: 04:50:42 Pat Name: SUJIT HOPE Department: Room: Gender: F Grey Roll Worker: : 1990 Requested By: JOHN FLOREZ Order Number: [id number] Reading MD: Pedro Paulson MD Measurements Intervals [place] Rate: 85 P: 19 MI: 135 QRS: 7 QRSD: 84 T: 12 QT: 399 QTc: 475 Interpretive Statements Sinus rhythm Low voltage, precordial leads Compared to ECG 01/08/2018 13:09:37 No significant changes Electronically Signed On 01-24-2018 11:04:10 PDT by Pedro Paulson MD CM:EKGRPT:ELECTROCARDIOGRAM REPORT [id number] JOHN FLOREZ MD EPIPHDILSHAD DRAFT REPORT JOHN FLOREZ MD
[2018-04-09] MEDS ORDERED: AMPHETAMINE/DEX30 MG PO (10:50)
[2018-04-09] MEDS ORDERED: XANAX1 MG PO (10:50)
[2018-04-09] MEDS ORDERED: REXULTI1 MG PO (10:51)
[2018-04-09] MEDS ORDERED: TRAZODONE150 MG PO (10:51)
[2018-04-09] MEDS ORDERED: SUBOXONE 8 MG-1 EACH SL (10:52)
[2018-04-09] MEDS ORDERED: ZOLOFT100 MG PO (12:06)
[2018-04-10] MEDS ORDERED: NORCO 5-325 TA1 EACH PO (16:12)
== END 2018-01-23 05:11 | disposition home or self-care (01) ==
LOC: ED 04:42
DX: R07.9 Chest pain, unspecified (principal); R06.02 Shortness of breath; K21.9 Gastro-esophageal reflux disease without esophagitis; G43.909 Migraine, unspecified, not intractable, without status migrainosus; E66.01 Morbid (severe) obesity due to excess calories; F17.200 Nicotine dependence, unspecified, uncomplicated; Z88.0 Allergy status to penicillin; Z88.2 Allergy status to sulfonamides; Z88.6 Allergy status to analgesic agent; Z88.8 Allergy status to other drugs, medicaments and biological substances; Z98.51 Tubal ligation status

== ENCOUNTER 2018-04-16 12:31 | Emergency (ER) | payer OTHER ==
[~2018-04-16] VITALS: Ht 160 cm; Wt 99.3 kg
[~2018-04-16 12:31] MED LIST changes: +AMPHETAMINE/DEX30 MG PO; +REXULTI1 MG PO; +SUBOXONE 8 MG-1 EACH SL; +TRAZODONE150 MG PO; +XANAX1 MG PO; +ZOLOFT100 MG PO
[2018-04-16] MEDS ORDERED: LATU20TA PO (12:38)
[2018-04-16] MEDS ORDERED: NORCO 10-325 T1 EACH PO (14:50)
== END 2018-04-16 14:51 | disposition home or self-care (01) ==
LOC: ED 12:31
DX: S22.31XD Fracture of one rib, right side, subsequent encounter for fracture with routine healing (principal); R07.81 Pleurodynia; G43.909 Migraine, unspecified, not intractable, without status migrainosus; E66.01 Morbid (severe) obesity due to excess calories; Z88.0 Allergy status to penicillin; Z88.8 Allergy status to other drugs, medicaments and biological substances; Z88.2 Allergy status to sulfonamides; Z79.899 Other long term (current) drug therapy; W10.8XXD Fall (on) (from) other stairs and steps, subsequent encounter

== ENCOUNTER → 2018-10-11 | Outpatient (CLI) | payer OTHER ==
[~2018-10-11] MED LIST changes: +DICYCLOMINE HYD10 MG PO; +KEFLEX500 M1 PO; +LATU20TA PO; +NORCO 10-325 T1 EACH PO; +XANAX2 M1 PO
== END | disposition home or self-care (01) ==
LOC: US 10:30
DX: K80.20 Calculus of gallbladder without cholecystitis without obstruction (principal)

== ENCOUNTER 2019-01-06 14:24 | Emergency (ER) | payer OTHER ==
[~2019-01-06] VITALS: Ht 160 cm; Wt 102.5 kg
[~2019-01-06 14:24] MED LIST changes: -KEFLEX500 M1 PO
[2019-01-06] MEDS ORDERED: KEFLEX500 M1 PO (14:47)
[2019-01-06] MEDS ORDERED: ATARAX,VISTARIL50 MG PO (14:47)
== END 2019-01-06 15:03 | disposition home or self-care (01) ==
LOC: ED 14:24
DX: R21 Rash and other nonspecific skin eruption (principal); L73.9 Follicular disorder, unspecified; B37.0 Candidal stomatitis; G43.909 Migraine, unspecified, not intractable, without status migrainosus; E66.01 Morbid (severe) obesity due to excess calories; F17.200 Nicotine dependence, unspecified, uncomplicated; Z88.0 Allergy status to penicillin; Z88.8 Allergy status to other drugs, medicaments and biological substances; Z88.2 Allergy status to sulfonamides

== ENCOUNTER 2019-01-25 22:22 | Inpatient (IN) | payer OTHER ==
[~2019-01-25] VITALS: Ht 160 cm; Wt 104.4 kg
--- NOTE | ~2019-01-25 | EKG ---
[place], [place] ELECTROCARDIOGRAM REPORT NAME: SUJIT HOPE UNIT #: [id number] ROOM: [facility] DOCTOR: TRESAANY DRAFT REPORT BIRTHDATE: [birth year] [facility] Test Date: 2019-01-26 Test Time: 01:23:26 Pat Name: SUJIT HOPE Department: Room: [facility] Gender: F Clinical Analyst: : 1990 Requested By: MICAH KAUR Order Number: [id number] Reading MD: Addi Slater MD Measurements Intervals [place] Rate: 86 P: 37 ID: 126 QRS: 21 QRSD: 79 T: 12 QT: 371 QTc: 444 Interpretive Statements Sinus rhythm Baseline wander in lead(s) II,III,aVF,V1,V2 Compared to ECG 01/23/2018 04:50:42 No significant changes Electronically Signed On 01-26-2019 12:22:43 PDT by Addi Slater MD CM:EKGRPT:ELECTROCARDIOGRAM REPORT [id number] 1222 MICAH KAUR MD EPIPHANY DRAFT REPORT MICAH KAUR MD
--- NOTE | ~2019-01-25 | EKG ---
[place], [place] ELECTROCARDIOGRAM REPORT NAME: SUJIT HOPE UNIT #: [id number] ROOM: [facility] DOCTOR: DEVAN DRAFT REPORT BIRTHDATE: [birth year] [facility] Test Date: 2019-01-25 Test Time: 22:35:55 Pat Name: SUJIT HOPE Department: ED Room: [facility] Gender: F Gear Hobber Operator: : 1990 Requested By: MICAH KAUR Order Number: [id number] Reading MD: Addi Slater MD Measurements Intervals [place] Rate: 99 P: 14 ME: 115 QRS: 38 QRSD: 82 T: 35 QT: 353 QTc: 453 Interpretive Statements Sinus rhythm Compared to ECG 01/23/2018 04:50:42 No significant changes Electronically Signed On 01-26-2019 12:21:52 PDT by Addi Slater MD CM:EKGRPT:ELECTROCARDIOGRAM REPORT 1221 MICAH KAUR MD EPIPHANY DRAFT REPORT MICAH KAUR MD
--- NOTE | ~2019-01-25 | EKG ---
[place], [place] ELECTROCARDIOGRAM REPORT NAME: SUJIT HOPE UNIT #: [id number] ROOM: [facility] DOCTOR: DEVAN DRAFT REPORT BIRTHDATE: [birth year] [facility] Test Date: 2019-01-26 Test Time: 03:55:37 Pat Name: SUJIT HOPE Department: Room: [facility] Gender: F Tank Farm Operator: : 1990 Requested By: MICAH KAUR Order Number: [id number] Reading MD: Addi Slater MD Measurements Intervals [place] Rate: 83 P: 40 MN: 122 QRS: 33 QRSD: 87 T: 18 QT: 391 QTc: 460 Interpretive Statements Sinus rhythm Baseline wander in lead(s) I,III,aVR,aVL,V1 Compared to ECG 01/23/2018 04:50:42 No significant changes Electronically Signed On 01-26-2019 12:23:03 PDT by Addi Slater MD CM:EKGRPT:ELECTROCARDIOGRAM REPORT [id number] 1223 MICAH KAUR MD EPIPHANY DRAFT REPORT MICAH KAUR MD
[~2019-01-25 22:22] MED LIST changes: +KEFLEX500 M1 PO
[2019-01-25 22:25] VITALS: BP 115/65
--- NOTE | 2019-01-25 22:30 | NUR ---
PATIENTS ARRIVED TO THE ROOM AND STATED THAT HE WAS HERE FOR THE PATEITN. I EXPLAINED TO THE THAT SINCE WE HAD MANY TESTS TO DO ON THE PATIENT AND THAT ROOM WOULD BE FULL THAT HE WOULD NEED TO WAIT IN THE FAMILY WAITING AREA OF THE ED UNTIL THE TESTS WERE DONE THEN I WOULD COME AND GET HIM. I EXPLAINED THAT THIS WOULD PROBABLY TAKEN ANYWHERE FROM 20 TO 30 MIN. HE WAS UNWILLING TO WAIT AND REQUESTED TO COME IN AND I EXPLAINED THAT THERE WOULD NOT BE ENOUGH ROOM AND THAT IT WOULD ONLY BE A SHORT TIME AGAIN. THE WENT TO THE WAITING ROOM BUT SOON AFTER RETURNED TO THE ROOM AND CAME IN. HE WAS VERY AGITATED AND STATED THAT HE NEEDED TO BE IN THE ROOM BECAUSE IT WAS HIS . I TOLD THE THAT HE IS ALLOWED IN THE ROOM BUT WAS ASKED TO WAIT IN THE FAMILY WAITING AREA WHILE THE TEST WERE BEING DONE TO MAKE ROOM FOR STAFF. THE WAS VERY ANGRY BUT CALM AND REQUESTED THAT I NOT BE THE NURSE. SHANNAN RN WAS CHARGE AT THE TIME AND SHE WAS NOTIFIED OF THE SITUATION. PROPER INTERVENTIONS ARE BEING MADE.
--- NOTE | 2019-01-25 22:45 | NUR ---
PT'SD ASKED TO SPEAK WITH THE "NURSE IN CHARGE AT THIS TIME" CHARGE NURSE I WENT TO THE PT'S ROOM WHERE THE WAS STANDING IN THE HALLWAY, I ESCORTED INTO THE FAMILY WAITING ROOM AND ASKED HIM TO INFORM ME OF THE PROBLEM THAT HE WAS HAVING. HE INFOMRED THIS RN THAT "THEY MADE ME WAIT IN THE LOBBY FOR TOO LONG WHEN I GOT HERE" AND "THEN WHEN I GOT BACK TO THE ROOM I WAS TOLD BY THE MALE NURSE THAT I WAS NOT ALLOUD TO STAY IN THE ROOM WITH MY " PT'S STATED THAT "THE MALE NURSE" (JANNA) "TOLD ME THAT THIS WAS HIS ER AND THAT HE COULD MAKE UP THE RULES HE WISHES" PT'S ALSO STATES "HE (JANNA) WAS THEN FLIRTING WITH MY " THIS RN INFORMED PT'S THAT WITH AN AMBULANCE IT IS CUSTOMARY FOR REGISTRAION ASK FAMILY TO WAIT IN THE LOBBY UNTIL THEY ARE INFORMED THAT FAMILY CAN COME BACK INTO THE ED. I ALSO INFORMED HIM THAT WITH A CHEST PAIN PT IT IS OUR PROTOCOL TO INITIATE MULTIPLE TESTS AT ONCE AND THAT WITH THIS THERE ARE MULTIPLE NURSES IN THE ROOM AND THAT DURING THE CHEST XRAY FAMILY IS ASKED TO STEP OUT OF THE ROOM FOR THEIR SAFETY. PT'S STATES THAT HE UNDERSTANDS EVEERYTHING AND STATES "I JUST DIDN'T LIKE THE ATTITUDE THAT I GOT" THEN REQUEST THAT A "FEMALE NURSE TAKES OVER HER CARE" I INFORMED THE THAT I AM THE CHARGE NURSE BUT THAT THERE IS A NURSING SNOW PLOW OPERATOR THAT HE COULD SPEAK TO IF HE WAS NOT SATISFIED WITH OUR CONVERSATION. PT'S VOICES THAT HE DOES NOT WISH TO SPEAK TO DEEDEE SALINAS AT THIS TIME ANS THAT " LONG WE GET A FEMALE NURSE WE WILL BE FINE" JANNA GAVE REPORT TO ISAIAS AND SHE TOOK OVER PT CARE. DEEDEE SALINAS NOTIFIED.
[2019-01-25 22:50] LABS: BASO % 0.4 % (0.0-1.0); EOS # 0.2 10*3/uL (0.0-0.4); EOS % 1.8 % (1.0-4.0); HEMATOCRIT 38.4 % (37.0-47.0); HEMOGLOBIN 12.4 g/dl (12.0-16.0); LYMPH # 3.6 10*3/uL (1.3-4.4); LYMPH % 33.5 % (27.0-41.0); MEAN CELL VOLUME 86.5 fl (81.0-99.0); MEAN CORPUSCULAR HGB 27.9 pg (27.0-31.0); MEAN CORPUSCULAR HGB CONC 32.3 g/dl (33.0-37.0); MEAN PLATELET VOLUME 11.1 fl (9.6-12.3); MONO # 0.8 10*3/uL (0.1-1.0); MONO % 7.7 % (3.0-9.0); NEUT % 56.3 % (47.0-73.0); PLATELET COUNT AUTOMATED 318 10*3/uL (130-400); RED BLOOD COUNT 4.44 10*6/uL (4.10-5.10); RED CELL DISTRI WIDTH 16.8 % (0-14.5); WHITE BLOOD COUNT 10.6 10*3/uL (4.8-10.8)
[2019-01-25 23:03] LABS: ACT PARTIAL THROMBO TIME 24.7 SECONDS (20.0-32.1); INTERNATIONAL NORM RATIO 0.9 (2.0-3.5)
--- NOTE | 2019-01-25 23:06 | NUR ---
POISON CONTROL NOTIFIED OF THE PATIENT TAKING 100 ZZZQUIL GENERIC PILLS. VITALS AND UPDATED CONDITION WERE GIVEN TO PC WHO STATED THAT BECAUSE HER VITALS ARE STABLE AND THAT SHE IS NOT HAVING MOST OF THE SXS THAT ARISE FROM OVERDOSING ON ZZZQUIL THAT SHE WILL MORE THEN LIKELY BE OK BUT STILL MUST BE EVALUATED. PC SUGGESTED THAT AN EKG BE OBTAINED, VITALS DONE Q30M, LAB WORK DONE, AND THE PATIENT BE EVALUATED FOR 6HRS.
[2019-01-25 23:08] LABS: ALBUMIN 3.6 gm/dl (3.1-4.5); ALKALINE PHOSPHATASE 97 U/L (45-117); BUN 18 mg/dl (7-24); CHLORIDE 106 mmol/L (98-107); CREATININE 0.85 mg/dL (0.55-1.02); POTASSIUM 3.7 mmol/L (3.5-5.1); SGOT/AST 27 IU/L (3-35); SODIUM 138 mmol/L (136-145); TOTAL PROTEIN 7.6 gm/dL (6.4-8.2)
[2019-01-25 23:12] VITALS: BP 115/61
[2019-01-25 23:13] LABS: SGPT/ALT 36 U/L (12-78)
[2019-01-25 23:15] LABS: TROPONIN I < 0.015 ng/ml (<0.045)
[2019-01-25 23:16] LABS: ACETAMINOPHEN (TYLENOL) < 5.0 ug/ml (10-30); ETHYL ALCOHOL < 3.0 mg/dl (<3)
[2019-01-25 23:28] VITALS: BP 118/72
--- NOTE | 2019-01-25 23:34 | NUR ---
PATIENT REFUSES TO PROVIDE ME URINE AT THIS TIME AND STATES SHE WILL TRY AFTER SHE GETS SOMETHING FOR ANXIETY AND PAIN.
--- NOTE | 2019-01-26 00:03 | NUR ---
NURSING OFF TRACK BETTING MANAGER IS IN ROOM SPEAKING WITH PATIENT AT THIS TIME.
--- NOTE | 2019-01-26 00:18 | NUR ---
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 NO OPEN WOUNDS OR DRAINAGE NOTED
[2019-01-26 00:48] VITALS: BP 101/50
[2019-01-26 00:54] LABS: BILIRUBIN NEGATIVE (NEGATIVE); BLOOD 1+ (NEGATIVE); CLARITY CLEAR (CLEAR); COLOR YELLOW (YELLOW); GLUCOSE NEGATIVE (NEGATIVE); KETONE NEGATIVE (NEGATIVE); LEUKO ESTERASE NEGATIVE (NEGATIVE); NITRITE NEGATIVE (NEGATIVE); SPECIFIC GRAVITY >= 1.030 (1.005-1.030); UROBILINOGEN 0.2 E.U./dl (0.2-1.0)
[2019-01-26 01:03] LABS: BACTERIA 3+
[2019-01-26 01:07] LABS: URINE AMPHETAMINES < 1000 (1000ng/ml); URINE BARBITURATES < 200 (200ng/ml); URINE BENZODIAZEPINES < 200 (200ng/ml); URINE CANNABINOIDS (THC) > 50 (50ng/ml); URINE COCAINE < 300 (300ng/ml); URINE METHADONE < 300 (300ng/ml); URINE OPIATES < 300 (300ng/ml)
[2019-01-26 01:13] LABS: URINE PHENCYCLIDINE < 25 (25ng/ml)
--- NOTE | 2019-01-26 02:00 | NUR ---
A 28, admitted to ICCU, under the services of MELIZA Munoz DO with a diagnosis of CHEST DISCOMFORT, SUICIDAL IDEATION. Chief complaint is SUICIDAL IDEATION. Patient arrived via bed from ER. Monitor applied. Initial assessment completed. Vital signs taken and recorded. MELIZA MUNOZ DO notified of admission to the unit. Orders received. See assessment for past medical history, medications and allergies. Patient and/or family oriented to unit. [facility] ICCU visitation policy reviewed. Clothing/patient valuable form completed. PATIENT ORIENTED TO UNIT ICCU PATIENT BEING VULGAR AND USING PROFANE LANGUAGE AND THREATENING STAFF MEMBERS UPON ARRIVAL. PATIENT THREATENING TO LEAVE UNIT AND RIPPED IV SITE OUT OF LEFT ARM. DR. SIMONS NOTIFIED, NURSING BLOCK SEALER NOTIFIED AND ARRIVED TO SPEAK TO THE PATIENT. SHEMAR GREEN
--- NOTE | 2019-01-26 02:12 | NUR ---
PT ITA REQUEST TO RETRIEVE PT PHONE FROM HER.PT ON UNIT IN ICCU AT THIS TIME.SUMEETIENMarcella ADVISED NO VISITORS ALLOWED AT THIS TIME.THIS RN TO ICCU UNIT TO ASK PT IF SHE WOULD LIKE HER BOYFRIEND TO HAVE HER PHONE.PT STATES "YES BUT GIVE ME A FEW MOMENTS I AM TEXTING HIM RIGHT NOW".THIS RN WAITED FOR PT TO BE COMPLETED.PT HANDED THIS RN HER CELL PHONE.RN SHEMAR AWARE THIS RN TOOK PT CELL PHONE TO BOYFRIEND.THIS RN TO WAITING ROOM WHERE BOYFRIEND WAS AWAITING.RN CHRIS SALCEDO WITNESSED THIS RN GIVING PT BOYFRIEND HER CELL PHONE.PT SUMEETIENMarcella (SAMANTHA)LEFT ER WAITING ROOM WITH PT CELL PHONE.
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
--- NOTE | 2019-01-26 02:49 | NUR ---
PATIENT STANDING IN MIDDLE OF ICCU SCREAMING AT STAFF. REFUSES TO USE BEDSIDE COMMODE DESPITE GIVEN PROPER PRIVACY TO DO SO. THREATENING STAFF WITH PHYSICAL VIOLENCE IF WE ATTEMPT TO COME NEAR HER BED.
--- NOTE | 2019-01-26 03:30 | NUR ---
pt refusing mrsa swab at this time.
--- NOTE | 2019-01-26 03:55 | NUR ---
PATIENT GIVEN VISTARIL, RESTORIL AND BENADRYL AT THIS TIME FOR ANXIETY AND AGITATION. EKG IN WITH PATIENT AT THIS TIME. PATIENT IS AMMENDABLE TO HAVING THIS TEST DONE.
--- NOTE | 2019-01-26 07:27 | NUR ---
JN XIONG NOTIFIED OF CONSULT, PT KNOWN TO HER. PATIENT CONDITION REVIEWED. SHE STATES SHE WILL BE IN TO SEE THE PATIENT TODAY.
--- NOTE | 2019-01-26 09:00 | NUR ---
PT'S SIGNIFICANT OTHER IN TO SEE HER. HE WOKE HER UP AFTER BIENG ASKED NOT TO. PT VERY QUICKLY BECAME VERBALLY ABUSIVE & THREATENING STAFF. PT THREATENING TO LEAVE. I INFORMED HER THAT JN XIONG, WILL BE IN TO SEE HER TO EVAULUATE HER. PT STATING SHE HAS HER OWN COUNSELOR SHE IS NOT GOING TO SEE JN.."I'M NOT GETTING BILLED TWICE." I IN FORMED PT THAT HER COUNSELOR DOES NOT HAVE PRIVELAGES HERE AND CAN NOT BE THE ONE TO EVALUATE HER. PT CONTINUES TO STATE SHE IS LEAVING. BILINGUAL OFFICE ASSISTANT AND SECURITY ASKED TO SEE PT.
--- NOTE | 2019-01-26 09:15 | NUR ---
KAYLEE MELGOZA,RICKSHAW DRIVER IN TO SPEAK WITH PT. PT CONTINUED TO BE VERBALLY ABUSIVE TO RICKSHAW DRIVER. PT WANTING TO USE THE BATHROOM. PT REFUSED TO USE AVAILABLE BSC. PT STATES THAT "YOU ARE VIOTATING MY PT RIGHTS BY REFUSING MY A BATHROOM." I DID THEN CALL DR FABIAN AND HE OK'S THAT PT CAN BE WALKED TI THE BATHROOM. PT THEN WALKED BY KAYLEE,NURSING RICKSHAW DRIVER, TO THE BATHROOM.
--- NOTE | 2019-01-26 09:30 | NUR ---
PT DENIES SUICIDAL THOUGHT OR IDEATIONS AT THIS TIME.
--- NOTE | 2019-01-26 09:51 | NUR ---
DR NANCE IN TO SEE PT. HE INFORMED PT AND PT'S PLAN OF CARE. PT REMAINS ARGUMENTATIVE. PT'S SIGNIFICANT OTHER ALSO UPDTED.
--- NOTE | 2019-01-26 10:09 | NUR ---
PT REFUSED MORPHINE FOR HER CHEST PAIN. SHE STATES THAT "THAT WILL MAKE ME SLLP ALL DAY..IT'S TOO MUCH. I COULD TAKE A VICODEN AND I ASKED FOR SOMETHING FOR ANXIETY...LIKE A XANAX." DR NANCE UPDATED. NEW ORDERS RECEIVED.
--- NOTE | 2019-01-26 10:25 | NUR ---
MEDICATED PT PER ONE TIME ORDER WITH VICODEN FOR PT'S C/O LEFT SIDED CHEST PAIN THAT THAT INCREASES WITH DEEP BREATH AND INSPIRATION. PT STATES "I KNOW IT IS MY HEART THOUGH...I HAVE BEEN THROUGH THIS MANY TIMES." PT RATES PAIN 8/10 ON PAIN SCALE. ALSO MEDICATED PT WITH XANAX FOR HER C/O ANXIETY.
--- NOTE | 2019-01-26 10:58 | NUR ---
met with client who is known to me for many years, she reports that she got upset because yesterday was her sisters birthday and she was murdered and she said her son is in [facility], client said that her boyfriend thought she took medications and she denies that now, she reports to me she wants to go home and she denies any suicidal ideation now,she has no psychosis and she is alert and oriented in all spheres. she can go home with no risk and she will follow up at [facility] where she is a client. she can be difficult and impulsive, but she is cooperative at this point with me. i recommend that she can go home and follow up outpatient.
--- NOTE | 2019-01-26 11:00 | NUR ---
JN XIONG IN TO SEE PT. AFTER SPEAKING WITH PT SHE DEEMED THAT PT IS NOT A HARM TO HERSELF OR OTHERS. DR NANCE AND DR FABIAN NOTIFIED. THEY ARE GOING TO D/C PT HOME.
--- NOTE | 2019-01-26 11:10 | NUR ---
PT REQUESTING SCRIPT FOR XANAX AND EITHER 800MG MOTRIN OR VICODEN. PT STATES VICODEN RELIEF HER EARLIER CHEST PAIN. DR NANCE STATED PT NEEDS TO FOLLOW UP WITH HER PRIMARY DOCTOR AND FOLLOW UP WITH [facility]. PT CAN TAKE OTC IBUPROFEN.
--- NOTE | 2019-01-26 11:20 | NUR ---
PT REQUESTING TO SPEAK WITH DOCTOR. I INFORMED DR FABIAN AND HE STATED THEY WILL BE BACK TO SEE PT AFTER MAKING ROUNDS ON THEIR OTHER PT'S THEY HAVE NOT SEEN YET. PT REFUSING TO WAIT. PT VERBALYY ABUSIVE AGAIN.
--- NOTE | 2019-01-26 11:30 | NUR ---
Discharge instructions reviewed with patient/family. Patient receptive and verbalizes understanding. Follow-up care arranged. Written instructions given to patient/family. MINERVA THOMAS
== END 2019-01-26 11:30 | disposition home or self-care (01) | DRG 206 ==
LOC: ED 22:22 → EDHOLD 01-26 01:17 → ICCU 01-26 01:28
PROVIDERS: Emergency Medicine Emergency Medical Services; ADMIT Family Medicine
DX: M94.0 Chondrocostal junction syndrome [Tietze] (principal); F33.2 Major depressive disorder, recurrent severe without psychotic features; R45.851 Suicidal ideations; I24.9 Acute ischemic heart disease, unspecified; K21.9 Gastro-esophageal reflux disease without esophagitis; F41.9 Anxiety disorder, unspecified; R00.0 Tachycardia, unspecified; F90.9 Attention-deficit hyperactivity disorder, unspecified type; F19.10 Other psychoactive substance abuse, uncomplicated; G43.909 Migraine, unspecified, not intractable, without status migrainosus; M54.32 Sciatica, left side; E66.01 Morbid (severe) obesity due to excess calories; F60.3 Borderline personality disorder; Z88.6 Allergy status to analgesic agent; Z88.0 Allergy status to penicillin; Z88.8 Allergy status to other drugs, medicaments and biological substances; Z79.899 Other long term (current) drug therapy; Z98.891 History of uterine scar from previous surgery; Z98.51 Tubal ligation status; Z81.8 Family history of other mental and behavioral disorders; Z82.3 Family history of stroke; Z80.9 Family history of malignant neoplasm, unspecified; Z83.3 Family history of diabetes mellitus; Z82.5 Family history of asthma and other chronic lower respiratory diseases; Z82.49 Family history of ischemic heart disease and other diseases of the circulatory system; Z76.5 Malingerer [conscious simulation]

== ENCOUNTER 2019-01-28 04:47 | Inpatient (IN) | payer OTHER ==
[~2019-01-28] VITALS: Ht 160 cm; Wt 107.3 kg
[2019-01-28 05:18] LABS: URINE AMPHETAMINES < 1000 (1000ng/ml); URINE BARBITURATES < 200 (200ng/ml); URINE BENZODIAZEPINES > 200 (200ng/ml); URINE CANNABINOIDS (THC) > 50 (50ng/ml); URINE COCAINE < 300 (300ng/ml); URINE METHADONE < 300 (300ng/ml); URINE OPIATES < 300 (300ng/ml)
[2019-01-28 05:22] LABS: URINE PHENCYCLIDINE < 25 (25ng/ml)
[2019-01-28 05:23] LABS: BASO % 0.4 % (0.0-1.0); EOS # 0.2 10*3/uL (0.0-0.4); EOS % 1.6 % (1.0-4.0); HEMATOCRIT 38.4 % (37.0-47.0); HEMOGLOBIN 12.2 g/dl (12.0-16.0); LYMPH # 2.8 10*3/uL (1.3-4.4); LYMPH % 24.1 % (27.0-41.0); MEAN CELL VOLUME 89.1 fl (81.0-99.0); MEAN CORPUSCULAR HGB 28.3 pg (27.0-31.0); MEAN CORPUSCULAR HGB CONC 31.8 g/dl (33.0-37.0); MEAN PLATELET VOLUME 10.9 fl (9.6-12.3); MONO # 0.8 10*3/uL (0.1-1.0); MONO % 6.7 % (3.0-9.0); NEUT # 7.7 10*3/uL (2.3-7.9); NEUT % 66.9 % (47.0-73.0); PLATELET COUNT AUTOMATED 324 10*3/uL (130-400); RED BLOOD COUNT 4.31 10*6/uL (4.10-5.10); RED CELL DISTRI WIDTH 16.7 % (0-14.5); WHITE BLOOD COUNT 11.4 10*3/uL (4.8-10.8)
[2019-01-28 05:39] LABS: ALBUMIN 3.7 gm/dl (3.1-4.5); ALKALINE PHOSPHATASE 93 U/L (45-117); BUN 15 mg/dl (7-24); CHLORIDE 105 mmol/L (98-107); CREATININE 0.89 mg/dL (0.55-1.02); LIPASE 142 U/L (73-393); POTASSIUM 3.5 mmol/L (3.5-5.1); SGOT/AST 17 IU/L (3-35); SGPT/ALT 35 U/L (12-78); SODIUM 139 mmol/L (136-145); TOTAL PROTEIN 7.8 gm/dL (6.4-8.2)
[2019-01-28 05:47] LABS: TROPONIN I < 0.015 ng/ml (<0.045)
--- NOTE | 2019-01-28 05:51 | NUR ---
CRITICAL LAB LA 2.3, NOTIFIED.
[2019-01-28 07:30] VITALS: BP 143/79
--- NOTE | 2019-01-28 07:50 | NUR ---
PT ARRIVES TO FLOOR VERY UNCOOPERATIVE, YELLING AND DEMANDING PAIN MEDICATIONS, EXPLAINED ADMISSION PROCESS TO PT. PT DOES HAVE NOTABLE SCATTERED SCABS TO ARMS AND LEGS, PT STATES SHE PICKS, PT REFUSES ASSESSMENT OF SCABBED AREAS.
--- NOTE | 2019-01-28 07:50 | NUR ---
Time: 749 A 28 year old FEMALE admitted to 4E under services of ALEX PAREDES DO. Pt. arrived via wheel chair from ER. Chief complaint: MID EPIGASTRIC PAIN, NAUSEA. BAO MEIER
[2019-01-28 08:00] VITALS: BP 119/74
--- NOTE | 2019-01-28 08:38 | NUR ---
PT OFF FLOOR FOR ULTRASOUND AT THIS TIME.
--- NOTE | 2019-01-28 08:38 | NUR ---
MEDICATED WITH MORPHINE, ZOFRAN PER PRN ORDER FOR COMPLAINTS OF MID EPIGASTRIC PAIN AND NAUSEA. WILL MONITOR FOR EFFECTIVENESS.
--- NOTE | 2019-01-28 09:28 | NUR ---
DR MURRAY MADE AWARE OF NEW CONSULT.
[2019-01-28] MEDS ORDERED: KLONOPIN1 M1 PO (09:32)
[2019-01-28] MEDS ORDERED: TRAZODONE100 MG PO (09:32)
[2019-01-28] MEDS ORDERED: DOXEPIN25 MG PO (09:32)
[2019-01-28] MEDS ORDERED: NEURONTIN300 MG PO (09:33)
--- NOTE | 2019-01-28 10:03 | NUR ---
SUJIT HOPE [id number] Please refer to the physician's history and physical for past medical history, comorbid conditions, and allergies. Diagnosis: ACUTE ABDOMINAL PAIN GALLSTONES Zaire Score: 21,LOW OR NO RISK WOUND DESCRIPTIONS: This nurse went to evaluate patient and patient stated what are you doing in here. I don't need wound care. I am a case picker due to my anxitey. Upon evalation patient stated that she uses hydrocortisone and will use that upon her return home and she doesn't want any type of follow up. Several intact scabs noted to BLE's this was the only area I was allow to visulaized per patient request. No redness surrounding areas at time of assessment no draiange noted at time of assessment. Surface the patient is resting on: Position Pro SKIN PREVENTION RECOMMENDATION: 1. Pressure redistribution support surface as appropriate 2. Elevate heels 3. Remove boots/TEDS every shift and reapply 4. Head of bed 30 degrees as tolerated 5. Assess nutrition and hydration 6. Manage moisture 7. Avoid the use of containment devices while in bed 8. Use absorptive products on surfaces limit layers of linens on bed 9. Turn and reposition every 1-2 hours in bed and every 1 hour in chair as tolerated 10. Weight shifts every 15 minutes while up in chair 11. Offloading with pillows or device to keep heels elevated off bed 12. Monitor skin at least every shift 13. Inspect under medical devices twice a day WOUND TREATMENT RECOMMENDATIONS: Hydrocortison per patient request. Cleanse affected areas with soap and water pat area dry then apply aquaphor bid.
--- NOTE | 2019-01-28 10:08 | NUR ---
This nurse informed nurse caring for patient Svetlana Ramos regarding wound care recommendations and when the physicians round to please notify them.
--- NOTE | 2019-01-28 10:49 | NUR ---
DR FOLEY MADE AWARE OF CARE MANAGEMENT TRANSFER.
--- NOTE | 2019-01-28 11:00 | NUR ---
DR FOLEY MADE AWARE OF PT'S MULTIPLE SCABBED AREAS TO BILATERAL LOWER LEGS AND WOUND CARE REC.
--- NOTE | 2019-01-28 11:49 | NUR ---
MEDICATED WITH DILAUDID PER PRN ORDER FOR COMPLAINTS OF 10/10 UPPER ABD PAIN. WILL MONITOR FOR EFFECTIVENESS.
[2019-01-28 11:50] LABS: BILIRUBIN NEGATIVE (NEGATIVE); BLOOD NEGATIVE (NEGATIVE); CLARITY CLOUDY (CLEAR); COLOR YELLOW (YELLOW); GLUCOSE NEGATIVE (NEGATIVE); KETONE NEGATIVE (NEGATIVE); LEUKO ESTERASE NEGATIVE (NEGATIVE); NITRITE NEGATIVE (NEGATIVE); SPECIFIC GRAVITY 1.015 (1.005-1.030); UROBILINOGEN 0.2 E.U./dl (0.2-1.0)
[2019-01-28 12:00] VITALS: BP 117/75
[2019-01-28 12:02] LABS: BACTERIA TRACE; WBC 0-2 wbc/hpf (0-5)
--- NOTE | 2019-01-28 12:30 | NUR ---
PT'S BOYFRIEND AT DESK REQUESTING FOR HER IV TO BE UNHOOKED. SHE WANTS TO SHOWER. EXPLAINED THAT I GAVE HER IV DILAUDID RECENTLY AND WOULD LIKE SOME TIME BEFORE SHE GETS INTO THE SHOWER IT IS A FALL RISK. VERBALIZES UNDERSTANDING.
--- NOTE | 2019-01-28 13:25 | NUR ---
CALLED INTO PT'S ROOM, PT VERY AGITATED, CURSING. STATING DR NOE STATED SHE WAS TO GET TORADOL ALONG WITH HER DILAUDID. SPOKE WITH DR FOLEY. ORDER RECEIVED.
--- NOTE | 2019-01-28 14:15 | NUR ---
IN TO GIVE PT 1X DOSE OF IV TORADOL, PT IMMEDIATELY STATES "THAT BETTER BE SOMETHING FOR PAIN" EXPLAINED THAT IT IS TORADOL, WHICH IS A ONE TIME DOSE. FOUND A CIGARETTE AND DATA COLLECTOR ON PT'S BEDSIDE TABLE. EXPLAINED TO PT THAT I WOULD NEED TO LOCK IT UP, SHE THEN STATES "I DON'T NEED TO TOUCH ANYTHING, STATES SHE WOULD PUT THE CIGARETTE IN HER PURSE, EXPLAINED THAT IS FINE, BUT REINFORCED THE NON-SMOKING POLICY, SHE STATES "IF I WANT TO SMOKE, I'LL JUST GO OUTSIDE", EXPLAINED THAT EVEN OFF THE HOSPITAL FLOOR IS AGAINST THE NON-SMOKING POLICY, PT THEN BECOMES MORE AGGRESSIVE AND STATES THAT THIS NURSE IS TOO PATHETIC TO DO ANYTHING FOR HER BECAUSE I WOULDN'T UNHOOK HER IV DIRECTLY AFTER GIVING IV DILAUDID AND SHE WANTS A DIFFERENT NURSE. EXPLAINED I WAS THERE NOW TO WRAP HER IV. STATES SHE WANTS ANOTHER NURSE NOW. REHAB NURSING TECH AND CHARGE NURSE MADE AWARE.
--- NOTE | 2019-01-28 14:30 | NUR ---
ROLL UP HELPER CALLED. FIRE SPRINKLER APPARATUS INSPECTOR,SECURITY,AND DR. FOLEY ENVOLVED. THIS RN RESUMED PATIENT CARE DO TO PATIENT REQUEST OF PREVIOUS RN CONFLICT. PATIENT AND DEMANDING,DEMEANING.
[2019-01-28 16:00] VITALS: BP 129/82
--- NOTE | 2019-01-28 16:31 | NUR ---
MEDICATED WITH DILAUDID FOR C/O MIDEPIGASTRIC/CHEST PAIN. PATIENT C/O IV IN A "BAD PALCE" AND WOULD LIKE IT CHANGED. NEW 20 L WRIST STARTED.
--- NOTE | 2019-01-28 17:00 | NUR ---
THIS RN ACCIDENTLY LEFT IV LOCK ON BEDSIDE TABLE UNDER PAPERS, THE FOUND AND CAME TO NURSES STATION AND PUT IT AT NURSES STATION.
--- NOTE | 2019-01-28 18:30 | NUR ---
IV INFILTRATED, AND PATIENT REFUSED VISTARIL. DR. FOLEY BACK IN TO SEE PATIENT BECAUSE HER AND FAMILY REQUESTING TRANSFERED OUT.
--- NOTE | 2019-01-28 18:38 | NUR ---
HERB TOOK CONSULT INFORMATION FOR DR. GRIFFITH.
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
--- NOTE | 2019-01-28 20:22 | NUR ---
upon enter floor, patient was disruptive, billgerant towards staff, shift director, and ip director. Patient asked repeatly to calm down and be respectful of hospital policies and staff. Requested patient to be complaint care. patient contined to shoot profanity, and slam doors. decission made for patient to leave [place]. [facility] called, [facility] sc[employer] present. patient escorted with her belongings off floor and out of building. Dr. Rox smalls of [place].
== END 2019-01-28 20:22 | disposition left against medical advice (07) | DRG 445 ==
LOC: ED 04:47 → 4E 06:28 → EDHOLD 06:28 → 4E 06:50
PROVIDERS: Emergency Medicine; ADMIT Internal Medicine
DX: K80.20 Calculus of gallbladder without cholecystitis without obstruction (principal); E87.2 Acidosis; Z68.41 Body mass index [BMI] 40.0-44.9, adult; E66.01 Morbid (severe) obesity due to excess calories; D72.829 Elevated white blood cell count, unspecified; R73.9 Hyperglycemia, unspecified; F32.9 Major depressive disorder, single episode, unspecified; F90.9 Attention-deficit hyperactivity disorder, unspecified type; M54.32 Sciatica, left side; F60.3 Borderline personality disorder; G43.909 Migraine, unspecified, not intractable, without status migrainosus; Z53.21 Procedure and treatment not carried out due to patient leaving prior to being seen by health care provider; F41.9 Anxiety disorder, unspecified; E55.9 Vitamin D deficiency, unspecified; F17.210 Nicotine dependence, cigarettes, uncomplicated; Z71.6 Tobacco abuse counseling; Z88.0 Allergy status to penicillin; Z88.6 Allergy status to analgesic agent; Z88.2 Allergy status to sulfonamides; Z88.8 Allergy status to other drugs, medicaments and biological substances; Z98.891 History of uterine scar from previous surgery; Z98.51 Tubal ligation status; Z81.8 Family history of other mental and behavioral disorders; Z83.3 Family history of diabetes mellitus; Z82.49 Family history of ischemic heart disease and other diseases of the circulatory system; Z80.8 Family history of malignant neoplasm of other organs or systems; Z82.5 Family history of asthma and other chronic lower respiratory diseases; Z79.899 Other long term (current) drug therapy

== ENCOUNTER → 2019-02-05 | Day surgery (SDC) | payer OTHER ==
[~2019-02-05] VITALS: Ht 160 cm; Wt 103.0 kg
[~2019-02-05] MED LIST changes: +DOXEPIN25 MG PO; +HYDROCODONE-AC1 EAC1 PO; +KLONOPIN1 M1 PO; +NEURONTIN300 MG PO; +TRAZODONE100 MG PO
--- NOTE | ~2019-02-05 | O ---
[place], [place] OPERATIVE NOTE NAME: SUJIT HOPE [facility] #: [id number] UNIT #: [id number] ROOM: DOCTOR: HUMBERTO MURRAY MD BIRTHDATE: [birth year] DOS: 02/05/2019 PREOPERATIVE DIAGNOSIS: Symptomatic gallstones. POSTOPERATIVE DIAGNOSIS: Symptomatic gallstones. PROCEDURE: Laparoscopic cholecystectomy. SURGEON: Humberto Murray MD DIRECTOR OF ACCOUNTING: JODI. ANESTHESIA: General with endotracheal intubation. INDICATIONS: This is a 28-year-old lady who is here for a laparoscopic cholecystectomy for symptomatic gallstones. The procedure and its complications were explained to the patient in detail preoperatively. Complications that were discussed included but were not limited to bleeding, infection, hematoma/seroma/abscess formation, biloma formation, inadvertent injury to common bile duct, incisional hernia formation, prolonged pain and she agreed to proceed. DESCRIPTION OF PROCEDURE: After identifying the patient, the patient was brought to the operating suite and laid in the supine position. After induction of general anesthesia, timeout procedure was called and the parts were then painted and draped in the usual sterile fashion. An incision below the umbilicus in a transverse fashion was made. The skin and the subcutaneous tissue was incised in line of the incision. The fascia was incised vertically and 2 stay sutures with 0 Vicryl were taken on either side. The peritoneum was opened and a 12 mm Milad port was introduced into the peritoneal cavity and pneumoperitoneum was created. Under direct vision, an epigastric incision of 10 mm and two 5 mm incisions were made in the right upper quadrant and appropriate size ports were introduced. The gallbladder was retracted superiorly and laterally. The cystic duct and the cystic artery were carefully dissected. Critical view of safety was obtained and the triangle of Calot was clearly identified. Each of these structures were then clipped 3 times and cut between the first and the second clip. The gallbladder was then removed from the bed of the gallbladder with the help of electrocautery. It was placed in an EndoCatch bag and removed from the peritoneal cavity and sent for histopathological diagnosis. After hemostasis was confirmed in the liver bed, the right upper quadrant and epigastric ports were removed and there was no bleeding seen. The umbilical port was also removed and the 2 stay sutures were tied together and an additional 0 Vicryl suture was taken in a [id number] fashion to close the fascial defect. Edges of the skin were infiltrated with 1% plain lidocaine and approximated with the help of 4-0 Vicryl in a subcuticular running fashion. Dressings were placed. The patient tolerated the procedure well. She was extubated uneventfully and brought back to the recovery room in a stable fashion. There were no complications. Dr. Humberto Murray, the attending surgeon, was present throughout the operating case. [place], [place] OPERATIVE NOTE NAME: SUJIT HOPE UNIT #: [id number] ROOM: DOCTOR: HUMBERTO MURRAY MD BIRTHDATE: [birth year] Humberto Murray MD CM:OPRECORD:OPERATIVE NOTE [id number] HUMBERTO MURRAY MD 02/05/19 1010 interface
[2019-02-05 07:00] VITALS: BP 92/55
[2019-02-05 09:09] VITALS: BP 128/72
[2019-02-05 09:24] VITALS: BP 145/88
[2019-02-05 09:39] VITALS: BP 137/86
[2019-02-05 09:54] VITALS: BP 140/88
[2019-02-05 10:10] VITALS: BP 108/56
== END | disposition home or self-care (01) ==
LOC: SDC 02-04 16:15
DX: K80.10 Calculus of gallbladder with chronic cholecystitis without obstruction (principal); F41.9 Anxiety disorder, unspecified; F32.9 Major depressive disorder, single episode, unspecified; J45.909 Unspecified asthma, uncomplicated; G43.909 Migraine, unspecified, not intractable, without status migrainosus; I10 Essential (primary) hypertension; E66.9 Obesity, unspecified; Z68.41 Body mass index [BMI] 40.0-44.9, adult; F17.210 Nicotine dependence, cigarettes, uncomplicated; Z98.890 Other specified postprocedural states; Z79.899 Other long term (current) drug therapy; Z88.8 Allergy status to other drugs, medicaments and biological substances; Z88.0 Allergy status to penicillin; Z83.3 Family history of diabetes mellitus; Z80.9 Family history of malignant neoplasm, unspecified; Z82.49 Family history of ischemic heart disease and other diseases of the circulatory system; Z82.5 Family history of asthma and other chronic lower respiratory diseases

== ENCOUNTER 2019-02-08 20:18 | Emergency (ER) | payer OTHER ==
[~2019-02-08] VITALS: Ht 161.2 cm; Wt 103.0 kg
[~2019-02-08 20:18] MED LIST changes: -HYDROCODONE-AC1 EAC1 PO
[2019-02-08] MEDS ORDERED: HYDROCODONE-AC1 EAC1 PO (20:28)
[2019-02-08 21:07] LABS: BILIRUBIN NEGATIVE (NEGATIVE); BLOOD NEGATIVE (NEGATIVE); CLARITY CLEAR (CLEAR); COLOR YELLOW (YELLOW); GLUCOSE NEGATIVE (NEGATIVE); KETONE NEGATIVE (NEGATIVE); LEUKO ESTERASE NEGATIVE (NEGATIVE); NITRITE NEGATIVE (NEGATIVE); SPECIFIC GRAVITY <= 1.005 (1.005-1.030); UROBILINOGEN 0.2 E.U./dl (0.2-1.0)
[2019-02-08 21:11] LABS: BACTERIA 1+; WBC 0-2 wbc/hpf (0-5)
[2019-02-08 21:19] LABS: BASO # 0.1 10*3/uL (0.0-0.1); BASO % 0.5 % (0.0-1.0); EOS # 0.2 10*3/uL (0.0-0.4); EOS % 1.6 % (1.0-4.0); HEMATOCRIT 35.9 % (37.0-47.0); HEMOGLOBIN 11.3 g/dl (12.0-16.0); LYMPH % 27.3 % (27.0-41.0); MEAN CELL VOLUME 88.4 fl (81.0-99.0); MEAN CORPUSCULAR HGB 27.8 pg (27.0-31.0); MEAN CORPUSCULAR HGB CONC 31.5 g/dl (33.0-37.0); MEAN PLATELET VOLUME 10.7 fl (9.6-12.3); MONO # 0.7 10*3/uL (0.1-1.0); MONO % 5.9 % (3.0-9.0); NEUT % 64.3 % (47.0-73.0); PLATELET COUNT AUTOMATED 363 10*3/uL (130-400); RED BLOOD COUNT 4.06 10*6/uL (4.10-5.10); RED CELL DISTRI WIDTH 17.5 % (0-14.5); WHITE BLOOD COUNT 10.9 10*3/uL (4.8-10.8)
[2019-02-08 21:30] LABS: INTERNATIONAL NORM RATIO 0.9 (2.0-3.5)
[2019-02-08 21:34] LABS: ALBUMIN 3.3 gm/dl (3.1-4.5); ALKALINE PHOSPHATASE 75 U/L (45-117); BUN 15 mg/dl (7-24); CHLORIDE 105 mmol/L (98-107); CREATININE 0.97 mg/dL (0.55-1.02); LIPASE 114 U/L (73-393); POTASSIUM 3.6 mmol/L (3.5-5.1); SGOT/AST 11 IU/L (3-35); SGPT/ALT 31 U/L (12-78); SODIUM 139 mmol/L (136-145); TOTAL PROTEIN 7.2 gm/dL (6.4-8.2)
== END 2019-02-09 00:12 | disposition home or self-care (01) ==
LOC: ED 20:18
PROVIDERS: Physician Assistant
DX: K42.9 Umbilical hernia without obstruction or gangrene (principal); F17.200 Nicotine dependence, unspecified, uncomplicated; Z90.49 Acquired absence of other specified parts of digestive tract; Z88.0 Allergy status to penicillin; Z88.1 Allergy status to other antibiotic agents; Z88.2 Allergy status to sulfonamides; Z88.8 Allergy status to other drugs, medicaments and biological substances; Z79.899 Other long term (current) drug therapy

== ENCOUNTER 2019-03-04 17:14 | Emergency (ER) | payer OTHER ==
[~2019-03-04] VITALS: Ht 160 cm; Wt 103.0 kg
[~2019-03-04 17:14] MED LIST changes: +HYDROCODONE-AC1 EAC1 PO
== END 2019-03-05 03:00 | disposition left against medical advice (07) ==
LOC: ED 17:14
DX: R51 Headache (principal); M25.531 Pain in right wrist; Z53.21 Procedure and treatment not carried out due to patient leaving prior to being seen by health care provider; Y04.2XXA Assault by strike against or bumped into by another person, initial encounter; Y93.89 Activity, other specified; Y92.89 Other specified places as the place of occurrence of the external cause; Y99.8 Other external cause status

== ENCOUNTER 2019-06-11 15:07 | Emergency (ER) | payer OTHER ==
[~2019-06-11] VITALS: Ht 160 cm; Wt 104.3 kg
[2019-06-11 15:32] LABS: BASO % 0.3 % (0.0-1.0); EOS # 0.1 10*3/uL (0.0-0.4); EOS % 1.1 % (1.0-4.0); HEMATOCRIT 37.2 % (37.0-47.0); HEMOGLOBIN 11.8 g/dl (12.0-16.0); LYMPH # 2.8 10*3/uL (1.3-4.4); LYMPH % 23.7 % (27.0-41.0); MEAN CELL VOLUME 89.4 fl (81.0-99.0); MEAN CORPUSCULAR HGB 28.4 pg (27.0-31.0); MEAN CORPUSCULAR HGB CONC 31.7 g/dl (33.0-37.0); MEAN PLATELET VOLUME 10.3 fl (9.6-12.3); MONO # 0.6 10*3/uL (0.1-1.0); MONO % 4.7 % (3.0-9.0); NEUT # 8.3 10*3/uL (2.3-7.9); NEUT % 69.9 % (47.0-73.0); PLATELET COUNT AUTOMATED 434 10*3/uL (130-400); RED BLOOD COUNT 4.16 10*6/uL (4.10-5.10); RED CELL DISTRI WIDTH 17.8 % (0-14.5); WHITE BLOOD COUNT 11.9 10*3/uL (4.8-10.8)
[2019-06-11 15:43] LABS: ACT PARTIAL THROMBO TIME 26.2 SECONDS (20.0-32.1); INTERNATIONAL NORM RATIO 0.9 (2.0-3.5)
[2019-06-11 15:48] LABS: ALBUMIN 3.9 gm/dl (3.1-4.5); ALKALINE PHOSPHATASE 123 U/L (45-117); BUN 11 mg/dl (7-24); CHLORIDE 108 mmol/L (98-107); CREATININE 0.98 mg/dL (0.55-1.02); POTASSIUM 3.7 mmol/L (3.5-5.1); SGOT/AST 12 IU/L (3-35); SGPT/ALT 32 U/L (12-78); SODIUM 140 mmol/L (136-145); TOTAL PROTEIN 7.9 gm/dL (6.4-8.2)
[2019-06-11 15:49] LABS: TROPONIN I < 0.015 ng/ml (<0.045)
== END 2019-06-11 17:05 | disposition home or self-care (01) ==
LOC: ED 15:07
PROVIDERS: Emergency Medicine
DX: R07.89 Other chest pain (principal); G43.909 Migraine, unspecified, not intractable, without status migrainosus; F12.90 Cannabis use, unspecified, uncomplicated; F17.200 Nicotine dependence, unspecified, uncomplicated; Z88.0 Allergy status to penicillin; Z88.1 Allergy status to other antibiotic agents; Z88.2 Allergy status to sulfonamides; Z88.8 Allergy status to other drugs, medicaments and biological substances; Z88.6 Allergy status to analgesic agent; Z79.899 Other long term (current) drug therapy; Z90.49 Acquired absence of other specified parts of digestive tract

== ENCOUNTER 2019-06-13 10:47 | Emergency (ER) | payer OTHER ==
[~2019-06-13] VITALS: Ht 160 cm; Wt 104.3 kg
[2019-06-13 12:15] LABS: BASO % 0.3 % (0.0-1.0); EOS # 0.1 10*3/uL (0.0-0.4); EOS % 1.1 % (1.0-4.0); HEMATOCRIT 36.9 % (37.0-47.0); HEMOGLOBIN 11.6 g/dl (12.0-16.0); LYMPH # 2.1 10*3/uL (1.3-4.4); LYMPH % 19.7 % (27.0-41.0); MEAN CELL VOLUME 91.1 fl (81.0-99.0); MEAN CORPUSCULAR HGB 28.6 pg (27.0-31.0); MEAN CORPUSCULAR HGB CONC 31.4 g/dl (33.0-37.0); MEAN PLATELET VOLUME 10.7 fl (9.6-12.3); MONO # 0.5 10*3/uL (0.1-1.0); MONO % 5.2 % (3.0-9.0); NEUT # 7.6 10*3/uL (2.3-7.9); NEUT % 73.4 % (47.0-73.0); PLATELET COUNT AUTOMATED 369 10*3/uL (130-400); RED BLOOD COUNT 4.05 10*6/uL (4.10-5.10); RED CELL DISTRI WIDTH 17.8 % (0-14.5); WHITE BLOOD COUNT 10.4 10*3/uL (4.8-10.8)
[2019-06-13 12:30] LABS: ALBUMIN 3.8 gm/dl (3.1-4.5); ALKALINE PHOSPHATASE 116 U/L (45-117); BUN 7 mg/dl (7-24); CHLORIDE 109 mmol/L (98-107); CREATININE 0.77 mg/dL (0.55-1.02); SGOT/AST 15 IU/L (3-35); SGPT/ALT 27 U/L (12-78); SODIUM 140 mmol/L (136-145); TOTAL PROTEIN 7.4 gm/dL (6.4-8.2)
[2019-06-13 12:32] LABS: POTASSIUM 4.9 mmol/L (3.5-5.1)
[2019-06-13] MEDS ORDERED: DOXYCYCLINE100 M3 PO (13:25)
== END 2019-06-13 13:32 | disposition home or self-care (01) ==
LOC: ED 10:47
PROVIDERS: Internal Medicine
DX: J40 Bronchitis, not specified as acute or chronic (principal); G43.909 Migraine, unspecified, not intractable, without status migrainosus; E66.01 Morbid (severe) obesity due to excess calories; F17.200 Nicotine dependence, unspecified, uncomplicated; Z88.0 Allergy status to penicillin; Z88.1 Allergy status to other antibiotic agents; Z88.8 Allergy status to other drugs, medicaments and biological substances; Z88.2 Allergy status to sulfonamides; Z79.899 Other long term (current) drug therapy; Z90.49 Acquired absence of other specified parts of digestive tract

== ENCOUNTER 2019-06-21 09:58 | Emergency (ER) | payer OTHER ==
[~2019-06-21] VITALS: Ht 162.5 cm; Wt 104.3 kg
[~2019-06-21 09:58] MED LIST changes: +DOXYCYCLINE100 M3 PO
[2019-06-21] MEDS ORDERED: FLONASE ALLERG9.9 ML NAS (13:18)
[2019-06-21] MEDS ORDERED: DOXYCYCLINE100 M3 PO (13:18)
[2019-06-21] MEDS ORDERED: ZOFRAN4 MG PO (13:18)
[2019-06-21] MEDS ORDERED: TESSALON PERLE100 M1 PO (13:18)
== END 2019-06-21 13:15 | disposition home or self-care (01) ==
LOC: ED 09:58
DX: J32.9 Chronic sinusitis, unspecified (principal); F32.9 Major depressive disorder, single episode, unspecified; G43.909 Migraine, unspecified, not intractable, without status migrainosus; F17.200 Nicotine dependence, unspecified, uncomplicated; Z90.49 Acquired absence of other specified parts of digestive tract; Z88.0 Allergy status to penicillin; Z88.1 Allergy status to other antibiotic agents; Z88.2 Allergy status to sulfonamides; Z88.8 Allergy status to other drugs, medicaments and biological substances; Z79.899 Other long term (current) drug therapy

== ENCOUNTER 2019-06-24 20:21 | Emergency (ER) | payer OTHER ==
[~2019-06-24] VITALS: Ht 160 cm; Wt 104.3 kg
[~2019-06-24 20:21] MED LIST changes: +FLONASE ALLERG9.9 ML NAS; +TESSALON PERLE100 M1 PO
[2019-06-24] MEDS ORDERED: VIBRAMYCIN100 MG PO (20:52)
[2019-06-24] MEDS ORDERED: PYRIDIUM200 M1 PO (20:52)
[2019-06-24 20:58] LABS: BILIRUBIN NEGATIVE (NEGATIVE); BLOOD TRACE-INTACT (NEGATIVE); CLARITY CLEAR (CLEAR); COLOR YELLOW (YELLOW); GLUCOSE NEGATIVE (NEGATIVE); KETONE NEGATIVE (NEGATIVE); LEUKO ESTERASE NEGATIVE (NEGATIVE); NITRITE NEGATIVE (NEGATIVE); PH 6.5 (5.0-9.0); UROBILINOGEN 0.2 E.U./dl (0.2-1.0)
[2019-06-24 21:02] LABS: BACTERIA TRACE; EPITHELIAL CELLS 31-40
== END 2019-06-24 21:28 | disposition left against medical advice (07) ==
LOC: ED 20:21
PROVIDERS: Nurse Practitioner Family
DX: R30.0 Dysuria (principal); R35.0 Frequency of micturition; G43.909 Migraine, unspecified, not intractable, without status migrainosus; F17.200 Nicotine dependence, unspecified, uncomplicated; Z88.0 Allergy status to penicillin; Z88.8 Allergy status to other drugs, medicaments and biological substances; Z88.2 Allergy status to sulfonamides; Z79.2 Long term (current) use of antibiotics; Z79.899 Other long term (current) drug therapy; Z90.49 Acquired absence of other specified parts of digestive tract

== ENCOUNTER 2019-09-19 12:10 | Emergency (ER) | payer OTHER ==
[~2019-09-19] VITALS: Ht 160 cm; Wt 99.8 kg
[~2019-09-19 12:10] MED LIST changes: +PYRIDIUM200 M1 PO
[2019-09-19 13:09] LABS: BASO % 0.3 % (0.0-1.0); EOS # 0.1 10*3/uL (0.0-0.4); EOS % 0.8 % (1.0-4.0); HEMATOCRIT 34.3 % (37.0-47.0); LYMPH # 2.9 10*3/uL (1.3-4.4); LYMPH % 22.9 % (27.0-41.0); MEAN CELL VOLUME 83.9 fl (81.0-99.0); MEAN CORPUSCULAR HGB 26.7 pg (27.0-31.0); MEAN CORPUSCULAR HGB CONC 31.8 g/dl (33.0-37.0); MEAN PLATELET VOLUME 10.5 fl (9.6-12.3); MONO # 0.7 10*3/uL (0.1-1.0); MONO % 5.8 % (3.0-9.0); NEUT # 8.7 10*3/uL (2.3-7.9); NEUT % 69.6 % (47.0-73.0); PLATELET COUNT AUTOMATED 306 10*3/uL (130-400); RED BLOOD COUNT 4.09 10*6/uL (4.10-5.10); RED CELL DISTRI WIDTH 18.3 % (0-14.5); WHITE BLOOD COUNT 12.5 10*3/uL (4.8-10.8)
[2019-09-19 13:22] LABS: ALBUMIN 3.4 gm/dl (3.1-4.5); ALKALINE PHOSPHATASE 89 U/L (45-117); BUN 18 mg/dl (7-24); CHLORIDE 110 mmol/L (98-107); CREATININE 0.73 mg/dL (0.55-1.02); POTASSIUM 4.2 mmol/L (3.5-5.1); SGOT/AST 11 IU/L (3-35); SGPT/ALT 28 U/L (12-78); SODIUM 139 mmol/L (136-145)
[2019-09-19 13:24] LABS: B-hCG (QUALITATIVE) NEGATIVE (NEGATIVE)
[2019-09-19 13:32] LABS: URINE AMPHETAMINES < 1000 (1000ng/ml); URINE BARBITURATES < 200 (200ng/ml); URINE BENZODIAZEPINES < 200 (200ng/ml); URINE CANNABINOIDS (THC) > 50 (50ng/ml); URINE COCAINE < 300 (300ng/ml); URINE METHADONE < 300 (300ng/ml); URINE OPIATES < 300 (300ng/ml)
[2019-09-19 13:33] LABS: BILIRUBIN NEGATIVE (NEGATIVE); CLARITY SL CLOUDY (CLEAR); COLOR YELLOW (YELLOW); GLUCOSE NEGATIVE (NEGATIVE); KETONE NEGATIVE (NEGATIVE); SPECIFIC GRAVITY 1.025 (1.005-1.030)
[2019-09-19 13:34] LABS: BACTERIA 2+; BLOOD 1+ (NEGATIVE); LEUKO ESTERASE NEGATIVE (NEGATIVE); MUCOUS 1+; NITRITE NEGATIVE (NEGATIVE); UROBILINOGEN 0.2 E.U./dl (0.2-1.0)
[2019-09-19 13:35] LABS: URINE PHENCYCLIDINE < 25 (25ng/ml)
[2019-09-19] MEDS ORDERED: NORCO 5-325 TA1 EACH PO (15:39)
== END 2019-09-19 16:01 | disposition home or self-care (01) ==
LOC: ED 12:10
PROVIDERS: Internal Medicine
DX: K42.9 Umbilical hernia without obstruction or gangrene (principal); G43.909 Migraine, unspecified, not intractable, without status migrainosus; F32.9 Major depressive disorder, single episode, unspecified; F17.200 Nicotine dependence, unspecified, uncomplicated; Z88.0 Allergy status to penicillin; Z88.1 Allergy status to other antibiotic agents; Z88.8 Allergy status to other drugs, medicaments and biological substances; Z88.2 Allergy status to sulfonamides; Z79.2 Long term (current) use of antibiotics; Z79.899 Other long term (current) drug therapy; Z98.890 Other specified postprocedural states; Z90.89 Acquired absence of other organs; Z98.51 Tubal ligation status; Z90.49 Acquired absence of other specified parts of digestive tract

== ENCOUNTER 2019-09-21 22:03 | Emergency (ER) | payer OTHER ==
[~2019-09-21] VITALS: Ht 160 cm; Wt 99.8 kg
[2019-09-21 23:08] LABS: BILIRUBIN NEGATIVE (NEGATIVE); BLOOD 1+ (NEGATIVE); CLARITY CLEAR (CLEAR); COLOR YELLOW (YELLOW); GLUCOSE NEGATIVE (NEGATIVE); KETONE NEGATIVE (NEGATIVE); LEUKO ESTERASE TRACE (NEGATIVE); NITRITE NEGATIVE (NEGATIVE); UROBILINOGEN 0.2 E.U./dl (0.2-1.0)
[2019-09-21 23:10] LABS: BASO # 0.1 10*3/uL (0.0-0.1); BASO % 0.5 % (0.0-1.0); EOS # 0.2 10*3/uL (0.0-0.4); EOS % 1.5 % (1.0-4.0); HEMATOCRIT 34.9 % (37.0-47.0); LYMPH # 2.8 10*3/uL (1.3-4.4); MEAN CELL VOLUME 82.9 fl (81.0-99.0); MEAN CORPUSCULAR HGB 27.1 pg (27.0-31.0); MEAN CORPUSCULAR HGB CONC 32.7 g/dl (33.0-37.0); MEAN PLATELET VOLUME 10.4 fl (9.6-12.3); MONO # 0.7 10*3/uL (0.1-1.0); MONO % 7.5 % (3.0-9.0); NEUT # 6.2 10*3/uL (2.3-7.9); NEUT % 62.2 % (47.0-73.0); PLATELET COUNT AUTOMATED 380 10*3/uL (130-400); RED BLOOD COUNT 4.21 10*6/uL (4.10-5.10); WHITE BLOOD COUNT 9.9 10*3/uL (4.8-10.8)
[2019-09-21 23:17] LABS: EPITHELIAL CELLS 16-20
[2019-09-21 23:18] LABS: BACTERIA TRACE
[2019-09-21 23:31] LABS: ALBUMIN 3.6 gm/dl (3.1-4.5); ALKALINE PHOSPHATASE 118 U/L (45-117); BUN 7 mg/dl (7-24); CHLORIDE 108 mmol/L (98-107); CREATININE 0.85 mg/dL (0.55-1.02); LIPASE 70 U/L (73-393); POTASSIUM 3.1 mmol/L (3.5-5.1); SGOT/AST 68 IU/L (3-35); SGPT/ALT 57 U/L (12-78); SODIUM 138 mmol/L (136-145); TOTAL PROTEIN 7.4 gm/dL (6.4-8.2)
[2019-09-26] MEDS ORDERED: TOPIRAMATE25 M3 PO (13:32)
[2019-09-26] MEDS ORDERED: FLUOXETINE HYDR20 M1 PO (13:33)
[2019-10-02] MEDS ORDERED: NORCO 5-325 TA1 EACH PO (10:32)
== END 2019-09-22 00:45 | disposition left against medical advice (07) ==
LOC: ED 22:03
PROVIDERS: Emergency Medicine
DX: R10.9 Unspecified abdominal pain (principal); R11.10 Vomiting, unspecified; F32.9 Major depressive disorder, single episode, unspecified; G43.909 Migraine, unspecified, not intractable, without status migrainosus; Z88.8 Allergy status to other drugs, medicaments and biological substances; Z88.0 Allergy status to penicillin; Z79.899 Other long term (current) drug therapy; Z79.2 Long term (current) use of antibiotics

== ENCOUNTER → 2019-09-26 | Outpatient (CLI) | payer OTHER ==
[~2019-09-26] MED LIST changes: +FLUOXETINE HYDR20 M1 PO; +TOPIRAMATE25 M3 PO
[2019-09-26 14:32] LABS: BASO % 0.2 % (0.0-1.0); EOS % 0.4 % (1.0-4.0); HEMATOCRIT 35.6 % (37.0-47.0); LYMPH # 2.1 10*3/uL (1.3-4.4); MEAN CELL VOLUME 86.6 fl (81.0-99.0); MEAN CORPUSCULAR HGB 27.5 pg (27.0-31.0); MEAN CORPUSCULAR HGB CONC 31.7 g/dl (33.0-37.0); MEAN PLATELET VOLUME 10.6 fl (9.6-12.3); MONO # 0.5 10*3/uL (0.1-1.0); MONO % 4.3 % (3.0-9.0); NEUT # 7.8 10*3/uL (2.3-7.9); NEUT % 74.9 % (47.0-73.0); PLATELET COUNT AUTOMATED 378 10*3/uL (130-400); RED BLOOD COUNT 4.11 10*6/uL (4.10-5.10); RED CELL DISTRI WIDTH 19.3 % (0-14.5); WHITE BLOOD COUNT 10.5 10*3/uL (4.8-10.8)
[2019-09-26 14:41] LABS: ACT PARTIAL THROMBO TIME 26.4 SECONDS (20.0-32.1)
[2019-09-26 14:45] LABS: BUN 8 mg/dl (7-24); CHLORIDE 107 mmol/L (98-107); CREATININE 0.88 mg/dL (0.55-1.02); POTASSIUM 3.4 mmol/L (3.5-5.1); SODIUM 139 mmol/L (136-145)
[2019-09-26 14:55] LABS: BILIRUBIN 1+ (NEGATIVE); BLOOD TRACE-INTACT (NEGATIVE); CLARITY CLEAR (CLEAR); COLOR YELLOW (YELLOW); GLUCOSE NEGATIVE (NEGATIVE); KETONE 1+ (NEGATIVE); SPECIFIC GRAVITY 1.015 (1.005-1.030)
[2019-09-26 14:56] LABS: LEUKO ESTERASE NEGATIVE (NEGATIVE); NITRITE NEGATIVE (NEGATIVE); RBC 0-2 rbc/hpf (0-2); UROBILINOGEN 0.2 E.U./dl (0.2-1.0)
[2019-09-26 14:57] LABS: BACTERIA TRACE; EPITHELIAL CELLS 16-20; MUCOUS 2+
== END | disposition home or self-care (01) ==
LOC: LAB 13:13
PROVIDERS: Surgery
DX: K42.9 Umbilical hernia without obstruction or gangrene (principal)

== ENCOUNTER → 2019-10-02 | Day surgery (SDC) | payer OTHER ==
[2019-09-26 13:31] VITALS: BP 100/66
[~2019-10-02] VITALS: Ht 160 cm; Wt 102.5 kg
[2019-10-02 09:06] VITALS: BP 107/56
[2019-10-02 10:39] VITALS: BP 137/81
[2019-10-02 10:55] VITALS: BP 112/53
[2019-10-02 11:10] VITALS: BP 92/56
[2019-10-02 11:25] VITALS: BP 93/55
[2019-10-02 11:41] VITALS: BP 107/59
== END | disposition home or self-care (01) ==
LOC: SDC 09-26 13:15
DX: K42.9 Umbilical hernia without obstruction or gangrene (principal); G43.909 Migraine, unspecified, not intractable, without status migrainosus; F41.9 Anxiety disorder, unspecified; F32.9 Major depressive disorder, single episode, unspecified; I10 Essential (primary) hypertension; E11.9 Type 2 diabetes mellitus without complications; F17.210 Nicotine dependence, cigarettes, uncomplicated; Z98.890 Other specified postprocedural states; Z79.899 Other long term (current) drug therapy; Z88.8 Allergy status to other drugs, medicaments and biological substances; Z83.3 Family history of diabetes mellitus; Z82.49 Family history of ischemic heart disease and other diseases of the circulatory system; Z80.8 Family history of malignant neoplasm of other organs or systems; Z98.51 Tubal ligation status

== ENCOUNTER 2020-01-31 19:03 | Emergency (ER) | payer OTHER ==
[~2020-01-31] VITALS: Ht 160 cm; Wt 93.9 kg
== END 2020-01-31 20:37 | disposition left against medical advice (07) ==
LOC: ED 19:03
DX: S09.90XA Unspecified injury of head, initial encounter (principal); F32.9 Major depressive disorder, single episode, unspecified; Z88.8 Allergy status to other drugs, medicaments and biological substances; Z88.0 Allergy status to penicillin; Z88.2 Allergy status to sulfonamides; Z79.899 Other long term (current) drug therapy; X58.XXXA Exposure to other specified factors, initial encounter; Y93.89 Activity, other specified; Y92.89 Other specified places as the place of occurrence of the external cause; Y99.8 Other external cause status

== ENCOUNTER 2020-02-01 14:35 | Emergency (ER) | payer OTHER ==
[~2020-02-01] VITALS: Ht 160 cm; Wt 93.9 kg
== END 2020-02-01 16:16 | disposition home or self-care (01) ==
LOC: ED 14:35
DX: S06.0X0A Concussion without loss of consciousness, initial encounter (principal); Z88.0 Allergy status to penicillin; Z88.2 Allergy status to sulfonamides; Z88.6 Allergy status to analgesic agent; Z79.899 Other long term (current) drug therapy; Z72.0 Tobacco use; W18.39XA Other fall on same level, initial encounter; Y93.89 Activity, other specified; Y92.89 Other specified places as the place of occurrence of the external cause; Y99.8 Other external cause status

== ENCOUNTER 2020-02-10 23:19 | Emergency (ER) | payer OTHER ==
[~2020-02-10] VITALS: Ht 160 cm; Wt 93.9 kg
[2020-02-10] MEDS ORDERED: MEDROL DOSEPAK4 MG PO (23:58)
[2020-02-10] MEDS ORDERED: ELIMITE 5%60 GM T (23:58)
[2020-02-10] MEDS ORDERED: VISTARIL50 MG PO (23:59)
== END 2020-02-11 00:54 | disposition home or self-care (01) ==
LOC: ED 23:19
DX: L25.9 Unspecified contact dermatitis, unspecified cause (principal); F32.9 Major depressive disorder, single episode, unspecified; G43.909 Migraine, unspecified, not intractable, without status migrainosus; F17.200 Nicotine dependence, unspecified, uncomplicated; Z88.0 Allergy status to penicillin; Z88.2 Allergy status to sulfonamides; Z88.8 Allergy status to other drugs, medicaments and biological substances; Z79.899 Other long term (current) drug therapy

== ENCOUNTER 2020-02-13 19:26 | Emergency (ER) | payer OTHER ==
[~2020-02-13] VITALS: Ht 161.2 cm; Wt 93.9 kg
[~2020-02-13 19:26] MED LIST changes: +ELIMITE 5%60 GM T
[2020-02-13] MEDS ORDERED: KEFLEX500 M1 PO (20:52)
== END 2020-02-13 20:55 | disposition home or self-care (01) ==
LOC: ED 19:26
DX: S41.109A Unspecified open wound of unspecified upper arm, initial encounter (principal); F41.9 Anxiety disorder, unspecified; L03.90 Cellulitis, unspecified; F32.9 Major depressive disorder, single episode, unspecified; G43.909 Migraine, unspecified, not intractable, without status migrainosus; F17.200 Nicotine dependence, unspecified, uncomplicated; Z88.8 Allergy status to other drugs, medicaments and biological substances; Z88.0 Allergy status to penicillin; X58.XXXA Exposure to other specified factors, initial encounter; Y93.89 Activity, other specified; Y92.89 Other specified places as the place of occurrence of the external cause; Y99.8 Other external cause status

== ENCOUNTER 2020-02-16 14:26 | Emergency (ER) | payer OTHER ==
[~2020-02-16] VITALS: Ht 160 cm; Wt 93.9 kg
[2020-02-16] MEDS ORDERED: PREDNISONE10 MG PO (15:21)
== END 2020-02-16 15:23 | disposition home or self-care (01) ==
LOC: ED 14:26
DX: L25.9 Unspecified contact dermatitis, unspecified cause (principal); Z88.0 Allergy status to penicillin; Z88.1 Allergy status to other antibiotic agents; Z88.8 Allergy status to other drugs, medicaments and biological substances; Z88.6 Allergy status to analgesic agent; Z79.899 Other long term (current) drug therapy; Z72.0 Tobacco use

== ENCOUNTER 2020-04-28 15:01 | Emergency (ER) | payer OTHER ==
[~2020-04-28] VITALS: Ht 160 cm; Wt 93.9 kg
[2020-04-28] MEDS ORDERED: ZITHROMAX250 MG PO (22:40)
== END 2020-04-28 22:46 | disposition home or self-care (01) ==
LOC: ED 15:01
DX: J32.9 Chronic sinusitis, unspecified (principal); Z88.0 Allergy status to penicillin; Z88.8 Allergy status to other drugs, medicaments and biological substances; Z79.899 Other long term (current) drug therapy; Z20.828 Contact with and (suspected) exposure to other viral communicable diseases

== ENCOUNTER 2020-05-21 16:20 | Emergency (ER) | payer OTHER ==
[~2020-05-21] VITALS: Ht 160 cm; Wt 93.9 kg
[2020-05-21] MEDS ORDERED: FLONASE ALLERG9.9 ML NAS (17:33)
[2020-05-21] MEDS ORDERED: PREDNISONE20 M1 PO (17:33)
[2020-05-21] MEDS ORDERED: VIBRAMYCIN100 MG PO (17:33)
== END 2020-05-21 17:37 | disposition home or self-care (01) ==
LOC: ED 16:20
DX: J32.9 Chronic sinusitis, unspecified (principal); F17.200 Nicotine dependence, unspecified, uncomplicated; Z88.0 Allergy status to penicillin; Z88.1 Allergy status to other antibiotic agents; Z88.2 Allergy status to sulfonamides; Z88.6 Allergy status to analgesic agent; Z79.899 Other long term (current) drug therapy

== ENCOUNTER 2020-06-20 14:02 | Emergency (ER) | payer OTHER ==
[~2020-06-20] VITALS: Ht 160 cm; Wt 97.1 kg
[~2020-06-20 14:02] MED LIST changes: +PREDNISONE20 M1 PO
[2020-06-20] MEDS ORDERED: ELIMITE 5%60 GM T (14:44)
[2020-06-20] MEDS ORDERED: ATARAX,VISTARIL50 MG PO (14:44)
== END 2020-06-20 15:00 | disposition home or self-care (01) ==
LOC: ED 14:02
DX: L29.9 Pruritus, unspecified (principal); F32.9 Major depressive disorder, single episode, unspecified; G43.909 Migraine, unspecified, not intractable, without status migrainosus; F17.200 Nicotine dependence, unspecified, uncomplicated; Z88.8 Allergy status to other drugs, medicaments and biological substances; Z88.0 Allergy status to penicillin; Z88.2 Allergy status to sulfonamides; Z79.899 Other long term (current) drug therapy; Z98.890 Other specified postprocedural states; Z98.51 Tubal ligation status

== ENCOUNTER 2020-07-01 15:49 | Emergency (ER) | payer OTHER ==
[~2020-07-01] VITALS: Ht 162.5 cm; Wt 98.4 kg
[2020-07-01] MEDS ORDERED: PREDNISONE20 M1 PO (17:37)
== END 2020-07-01 17:54 | disposition home or self-care (01) ==
LOC: ED 15:49
DX: L30.9 Dermatitis, unspecified (principal); F32.9 Major depressive disorder, single episode, unspecified; G43.909 Migraine, unspecified, not intractable, without status migrainosus; F17.200 Nicotine dependence, unspecified, uncomplicated; Z88.0 Allergy status to penicillin; Z88.8 Allergy status to other drugs, medicaments and biological substances; Z79.899 Other long term (current) drug therapy; Z88.2 Allergy status to sulfonamides; Z98.890 Other specified postprocedural states; Z98.51 Tubal ligation status; Z90.49 Acquired absence of other specified parts of digestive tract

== ENCOUNTER → 2020-07-14 | Outpatient (CLI) | payer OTHER ==
[2020-07-14 11:11] LABS: BILIRUBIN Negative (Negative); BLOOD Negative (Negative); CLARITY Clear (Clear); COLOR Yellow (Yellow); GLUCOSE Negative (Negative); KETONE Negative (Negative); LEUKO ESTERASE Negative (Negative); NITRITE Negative (Negative); SPECIFIC GRAVITY 1.015 (1.001-1.030); UROBILINOGEN 0.2 E.U./dl (0.0-1.0)
[2020-07-14 11:21] LABS: RBC 0-2 rbc/hpf (0-2); WBC 0-2 wbc/hpf (0-5)
== END | disposition home or self-care (01) ==
LOC: LAB 10:38
PROVIDERS: ATTEND Nurse Practitioner Family
DX: D72.829 Elevated white blood cell count, unspecified (principal)

== ENCOUNTER → 2020-07-15 | Outpatient (CLI) | payer OTHER | END | disposition home or self-care (01) | LOC: LAB 17:00 | PROVIDERS: ATTEND Nurse Practitioner Family | DX: D72.829 Elevated white blood cell count, unspecified (principal) ==

== ENCOUNTER 2020-07-20 11:46 | Emergency (ER) | payer OTHER ==
[~2020-07-20] VITALS: Ht 160 cm; Wt 97.1 kg
[2020-07-20 13:55] LABS: BILIRUBIN Negative (Negative); BLOOD Negative (Negative); CLARITY Clear (Clear); COLOR Yellow (Yellow); GLUCOSE Negative (Negative); KETONE Negative (Negative); LEUKO ESTERASE Negative (Negative); NITRITE Negative (Negative); SPECIFIC GRAVITY <= 1.005 (1.001-1.030); UROBILINOGEN 0.2 E.U./dl (0.0-1.0)
[2020-07-20 14:44] LABS: BASO % 0.2 % (0.0-1.0); EOS # 0.1 10*3/uL (0.0-0.4); EOS % 1.4 % (1.0-4.0); HEMATOCRIT 32.8 % (37.0-47.0); LYMPH # 2.4 10*3/uL (1.3-4.4); LYMPH % 25.8 % (27.0-41.0); MEAN CELL VOLUME 85.2 fl (81.0-99.0); MEAN CORPUSCULAR HGB 27.5 pg (27.0-31.0); MEAN CORPUSCULAR HGB CONC 32.3 g/dl (33.0-37.0); MEAN PLATELET VOLUME 10.5 fl (9.6-12.3); MONO # 0.6 10*3/uL (0.1-1.0); MONO % 6.1 % (3.0-9.0); NEUT # 6.2 10*3/uL (2.3-7.9); NEUT % 66.3 % (47.0-73.0); PLATELET COUNT AUTOMATED 257 10*3/uL (130-400); RED BLOOD COUNT 3.85 10*6/uL (4.10-5.10); WHITE BLOOD COUNT 9.4 10*3/uL (4.8-10.8)
[2020-07-20 15:00] LABS: ALBUMIN 3.1 gm/dl (3.1-4.5); ALKALINE PHOSPHATASE 79 U/L (45-117); BUN 8 mg/dl (7-24); CHLORIDE 110 mmol/L (98-107); POTASSIUM 3.6 mmol/L (3.5-5.1); SGOT/AST 16 IU/L (3-35); SGPT/ALT 33 U/L (12-78); SODIUM 141 mmol/L (136-145); TOTAL PROTEIN 6.5 gm/dL (6.4-8.2)
== END 2020-07-20 17:04 | disposition home or self-care (01) ==
LOC: ED 11:46
PROVIDERS: Physician Assistant
DX: R53.83 Other fatigue (principal); F17.200 Nicotine dependence, unspecified, uncomplicated; F32.9 Major depressive disorder, single episode, unspecified; G43.909 Migraine, unspecified, not intractable, without status migrainosus; Z20.822 Contact with and (suspected) exposure to COVID-19; Z88.0 Allergy status to penicillin; Z88.8 Allergy status to other drugs, medicaments and biological substances; Z88.2 Allergy status to sulfonamides; Z79.899 Other long term (current) drug therapy; Z98.890 Other specified postprocedural states; Z98.51 Tubal ligation status; Z90.49 Acquired absence of other specified parts of digestive tract

== ENCOUNTER 2020-10-07 21:27 | Emergency (ER) | payer OTHER ==
[~2020-10-07] VITALS: Ht 161.2 cm; Wt 98.9 kg
[2020-10-08] MEDS ORDERED: LEVOFLOXACIN500 MG PO (00:24)
[2020-10-08] MEDS ORDERED: PREDNISONE20 M1 PO (00:24)
== END 2020-10-08 00:54 | disposition home or self-care (01) ==
LOC: ED 21:27
DX: J01.90 Acute sinusitis, unspecified (principal); J06.9 Acute upper respiratory infection, unspecified; F17.200 Nicotine dependence, unspecified, uncomplicated; Z88.0 Allergy status to penicillin; Z88.1 Allergy status to other antibiotic agents; Z88.2 Allergy status to sulfonamides; Z79.899 Other long term (current) drug therapy; Z79.2 Long term (current) use of antibiotics; Z98.890 Other specified postprocedural states; Z98.51 Tubal ligation status; Z90.89 Acquired absence of other organs; Z90.49 Acquired absence of other specified parts of digestive tract

== ENCOUNTER → 2022-06-02 | Outpatient (CLI) | payer MEDICAID ==
[~2022-06-02] MED LIST changes: +LEVOFLOXACIN500 MG PO
== END | disposition home or self-care (01) ==
LOC: RAD 14:07
PROVIDERS: ATTEND Nurse Practitioner Primary Care
DX: R05.3 Chronic cough (principal); R06.02 Shortness of breath

== ENCOUNTER 2022-07-26 23:36 | Emergency (ER) | payer OTHER ==
[~2022-07-26] VITALS: Ht 167.6 cm; Wt 90.7 kg
[2022-07-27 01:17] LABS: URINE AMPHETAMINES Negative (1000ng/ml); URINE BARBITURATES Negative (200ng/ml); URINE BENZODIAZEPINES Negative (200ng/ml); URINE CANNABINOIDS (THC) Positive (50ng/ml); URINE COCAINE Negative (300ng/ml); URINE METHADONE Negative (300ng/ml); URINE OPIATES Negative (300ng/ml); URINE PHENCYCLIDINE Negative (25ng/ml)
== END 2022-07-27 01:49 | disposition home or self-care (01) ==
LOC: ED 23:36
PROVIDERS: Emergency Medicine
DX: Z02.83 Encounter for blood-alcohol and blood-drug test (principal); F41.9 Anxiety disorder, unspecified; F32.A Depression, unspecified; G43.909 Migraine, unspecified, not intractable, without status migrainosus; E11.65 Type 2 diabetes mellitus with hyperglycemia; Z88.0 Allergy status to penicillin; Z88.2 Allergy status to sulfonamides; Z88.6 Allergy status to analgesic agent; Z88.1 Allergy status to other antibiotic agents; Z88.8 Allergy status to other drugs, medicaments and biological substances; Z90.89 Acquired absence of other organs; Z98.51 Tubal ligation status; Z90.49 Acquired absence of other specified parts of digestive tract; F17.210 Nicotine dependence, cigarettes, uncomplicated; Z79.899 Other long term (current) drug therapy; F12.90 Cannabis use, unspecified, uncomplicated

== ENCOUNTER 2023-07-03 07:31 | Emergency (ER) | payer OTHER ==
[~2023-07-03] VITALS: Ht 162.5 cm; Wt 81.6 kg
[2023-07-03 08:30] LABS: BASO % 0.2 % (0.0-1.0); EOS # 0.1 10*3/uL (0.0-0.4); EOS % 0.8 % (1.0-4.0); HEMATOCRIT 36.9 % (37.0-47.0); LYMPH # 1.5 10*3/uL (1.3-4.4); MEAN CELL VOLUME 91.3 fl (81.0-99.0); MEAN CORPUSCULAR HGB 29.5 pg (27.0-31.0); MEAN CORPUSCULAR HGB CONC 32.2 g/dl (33.0-37.0); MEAN PLATELET VOLUME 10.4 fl (9.6-12.3); MONO # 0.5 10*3/uL (0.1-1.0); MONO % 5.7 % (3.0-9.0); NEUT # 6.8 10*3/uL (2.3-7.9); NEUT % 76.1 % (47.0-73.0); PLATELET COUNT AUTOMATED 330 10*3/uL (130-400); RED BLOOD COUNT 4.04 10*6/uL (4.10-5.10); RED CELL DISTRI WIDTH 16.1 % (0-14.5)
[2023-07-03 08:51] LABS: ALKALINE PHOSPHATASE 75 U/L (46-116); BUN 6 mg/dl (9-23); CHLORIDE 111 mmol/L (98-107); POTASSIUM 3.5 mmol/L (3.4-5.1); SGPT/ALT 17 U/L (5-49); TOTAL PROTEIN 7.6 gm/dL (6.0-8.0)
[2023-07-03] MEDS ORDERED: Ondansetron Hydrochloride 4 MG/2 ML VIAL IV ONE (09:00)
[2023-07-03] MEDS ORDERED: SODIUM CHLORIDE 0.9% 1,000 ML IV ONE (09:00)
[2023-07-03] MEDS ORDERED: ONDANSETRON HYDR4 M1 PO (10:59)
== END 2023-07-03 11:30 | disposition home or self-care (01) ==
LOC: ED 07:31
PROVIDERS: Student in an Organized Health Care Education/Training Program
DX: K52.9 Noninfective gastroenteritis and colitis, unspecified (principal); R11.2 Nausea with vomiting, unspecified; F32.A Depression, unspecified; G43.909 Migraine, unspecified, not intractable, without status migrainosus; Z88.0 Allergy status to penicillin; Z88.1 Allergy status to other antibiotic agents; Z88.6 Allergy status to analgesic agent; Z88.2 Allergy status to sulfonamides; Z88.8 Allergy status to other drugs, medicaments and biological substances; Z90.89 Acquired absence of other organs; Z98.51 Tubal ligation status; Z90.49 Acquired absence of other specified parts of digestive tract; Z98.890 Other specified postprocedural states; Z72.0 Tobacco use

== ENCOUNTER → 2023-07-17 | Outpatient (CLI) | payer OTHER ==
[~2023-07-17] MED LIST changes: +ONDANSETRON HYDR4 M1 PO
[2023-07-17 16:53] LABS: ALKALINE PHOSPHATASE 60 U/L (46-116); BUN 10 mg/dl (9-23); CHLORIDE 109 mmol/L (98-107); SGPT/ALT 13 U/L (5-49); TOTAL PROTEIN 7.6 gm/dL (6.0-8.0)
== END | disposition home or self-care (01) ==
LOC: LAB 16:09
PROVIDERS: ATTEND Nurse Practitioner Family
DX: B18.1 Chronic viral hepatitis B without delta-agent (principal)

== ENCOUNTER → 2023-10-16 | Outpatient (CLI) | payer OTHER ==
[2023-10-16 14:57] LABS: TOTAL PROTEIN 7.4 gm/dL (6.0-8.0)
[2023-10-17 11:08] LABS: HEPATITIS B SURFACE AG Negative (Negative); HEPATITIS Be ANTIGEN Negative (Negative)
[2023-10-17 22:06] LABS: HBV HBV DNA not detected IU/mL (.)
== END | disposition home or self-care (01) ==
LOC: LAB 14:12
PROVIDERS: ATTEND Physician Assistant Medical
DX: B16.9 Acute hepatitis B without delta-agent and without hepatic coma (principal)

== ENCOUNTER 2024-07-28 07:51 | Emergency (ER) | payer OTHER ==
[~2024-07-28] VITALS: Ht 160 cm; Wt 81.6 kg
[2024-07-28] MEDS ORDERED: PAROXETINE HCL20 MG PO (07:56)
[2024-07-28] MEDS ORDERED: QUETIAPINE FUMA50 M1 PO (07:56)
[2024-07-28] MEDS ORDERED: TRIAMCINOLONE430 GM TD (08:09)
[2024-07-28] MEDS ORDERED: PERMETHRIN60 GM TD (08:09)
[2024-07-28] MEDS ORDERED: PREDNISONE20 M1 PO (08:09)
== END 2024-07-28 08:16 | disposition home or self-care (01) ==
LOC: ED 07:51
DX: L25.9 Unspecified contact dermatitis, unspecified cause (principal); F17.200 Nicotine dependence, unspecified, uncomplicated; Z88.0 Allergy status to penicillin; Z88.1 Allergy status to other antibiotic agents; Z88.2 Allergy status to sulfonamides; Z88.8 Allergy status to other drugs, medicaments and biological substances; Z88.6 Allergy status to analgesic agent; Z79.899 Other long term (current) drug therapy; Z98.890 Other specified postprocedural states; Z90.89 Acquired absence of other organs

== ENCOUNTER 2024-08-22 13:21 | Emergency (ER) | payer OTHER ==
[~2024-08-22] VITALS: Ht 160 cm; Wt 72.6 kg
[~2024-08-22 13:21] MED LIST changes: +PAROXETINE HCL20 MG PO; +PERMETHRIN60 GM TD; +QUETIAPINE FUMA50 M1 PO; +TRIAMCINOLONE430 GM TD
[2024-08-22] MEDS ORDERED: OXYCODONE HCL (IR) 5 MG TAB PO ONE (13:45)
== END 2024-08-22 14:35 | disposition home or self-care (01) ==
LOC: ED 13:21
DX: S93.601A Unspecified sprain of right foot, initial encounter (principal); F31.9 Bipolar disorder, unspecified; F41.9 Anxiety disorder, unspecified; F17.200 Nicotine dependence, unspecified, uncomplicated; Z88.0 Allergy status to penicillin; Z88.6 Allergy status to analgesic agent; Z88.1 Allergy status to other antibiotic agents; Z88.2 Allergy status to sulfonamides; Z88.8 Allergy status to other drugs, medicaments and biological substances; Z79.899 Other long term (current) drug therapy; Z98.890 Other specified postprocedural states; Z90.89 Acquired absence of other organs; Z90.49 Acquired absence of other specified parts of digestive tract; W18.39XA Other fall on same level, initial encounter; Y93.89 Activity, other specified; Y92.89 Other specified places as the place of occurrence of the external cause; Y99.8 Other external cause status

== ENCOUNTER 2024-09-12 15:18 | Emergency (ER) | payer OTHER ==
[~2024-09-12] VITALS: Ht 160 cm; Wt 63.5 kg
[2024-09-12] MEDS ORDERED: VIBRAMYCIN100 MG PO (15:38)
== END 2024-09-12 15:43 | disposition home or self-care (01) ==
LOC: ED 15:18
DX: L73.2 Hidradenitis suppurativa (principal); F32.A Depression, unspecified; G43.909 Migraine, unspecified, not intractable, without status migrainosus; Z79.899 Other long term (current) drug therapy; Z88.0 Allergy status to penicillin; Z88.1 Allergy status to other antibiotic agents; Z88.2 Allergy status to sulfonamides; Z88.8 Allergy status to other drugs, medicaments and biological substances; Z90.89 Acquired absence of other organs; Z98.51 Tubal ligation status; Z98.890 Other specified postprocedural states

== ENCOUNTER → 2024-09-22 | Outpatient (CLI) | payer OTHER ==
[2024-09-22 16:42] LABS: BASO % 0.4 % (0.0-1.0); EOS # 0.1 10*3/uL (0.0-0.4); HEMATOCRIT 35.7 % (37.0-47.0); MEAN CORPUSCULAR HGB 27.5 pg (27.0-31.0); MEAN CORPUSCULAR HGB CONC 32.8 g/dl (33.0-37.0); MEAN PLATELET VOLUME 10.4 fl (9.6-12.3); MONO # 0.4 10*3/uL (0.1-1.0); MONO % 5.3 % (3.0-9.0); NEUT # 5.5 10*3/uL (2.3-7.9); NEUT % 71.2 % (47.0-73.0); PLATELET COUNT AUTOMATED 284 10*3/uL (130-400); RED BLOOD COUNT 4.25 10*6/uL (4.10-5.10); RED CELL DISTRI WIDTH 17.4 % (0-14.5); WHITE BLOOD COUNT 7.7 10*3/uL (4.8-10.8)
[2024-09-22 17:17] LABS: ALKALINE PHOSPHATASE 107 U/L (46-116); BUN 11 mg/dl (9-23); CHLORIDE 106 mmol/L (98-107); POTASSIUM 3.5 mmol/L (3.4-5.1); SGPT/ALT 18 U/L (5-49); TOTAL PROTEIN 7.1 gm/dL (6.0-8.0)
[2024-09-23 07:06] LABS: HBsAG SCREEN Negative (Negative); HCV Ab Non Reactive (Non Reactive); HEP B CORE Ab, IgM Positive (Negative)
== END | disposition home or self-care (01) ==
LOC: LAB 15:52
PROVIDERS: Student in an Organized Health Care Education/Training Program; ATTEND Family Medicine
DX: Z72.51 High risk heterosexual behavior (principal); Z20.6 Contact with and (suspected) exposure to human immunodeficiency virus [HIV]

== ENCOUNTER 2024-12-03 17:36 | Emergency (ER) | payer OTHER ==
[~2024-12-03] VITALS: Ht 160 cm; Wt 63.5 kg
[2024-12-03] MEDS ORDERED: METHOCARBAMOL750 M1 PO (19:56)
[2024-12-03] MEDS ORDERED: PREDNISONE20 M1 PO (19:56)
[2024-12-03] MEDS ORDERED: Ondansetron4 MG PO (19:56)
[2024-12-03] MEDS ORDERED: OXYCODONE HCL (IR) 5 MG TAB PO ONE (20:00)
[2024-12-03] MEDS ORDERED: Ondansetron Hydrochloride 4 MG TAB PO ONE (20:00)
== END 2024-12-03 20:04 | disposition home or self-care (01) ==
LOC: ED 17:36
DX: S29.012A Strain of muscle and tendon of back wall of thorax, initial encounter (principal); S16.1XXA Strain of muscle, fascia and tendon at neck level, initial encounter; S40.011A Contusion of right shoulder, initial encounter; S00.01XA Abrasion of scalp, initial encounter; G43.909 Migraine, unspecified, not intractable, without status migrainosus; F32.A Depression, unspecified; F17.200 Nicotine dependence, unspecified, uncomplicated; Z90.710 Acquired absence of both cervix and uterus; Z79.899 Other long term (current) drug therapy; Z88.0 Allergy status to penicillin; Z88.1 Allergy status to other antibiotic agents; Z88.2 Allergy status to sulfonamides; Z88.8 Allergy status to other drugs, medicaments and biological substances; Z98.51 Tubal ligation status; Z98.890 Other specified postprocedural states; V89.2XXA Person injured in unspecified motor-vehicle accident, traffic, initial encounter; Y93.89 Activity, other specified; Y92.410 Unspecified street and highway as the place of occurrence of the external cause; Y99.8 Other external cause status

== ENCOUNTER 2024-12-09 05:04 | Emergency (ER) | payer OTHER ==
[~2024-12-09] VITALS: Ht 160 cm; Wt 64.9 kg
[~2024-12-09 05:04] MED LIST changes: +METHOCARBAMOL750 M1 PO; +Ondansetron4 MG PO
[2024-12-09] MEDS ORDERED: Tdap Vaccine 0.5 ML SYR (Adult Vaccine) IM ONE (05:25)
[2024-12-09] MEDS ORDERED: VIBRAMYCIN100 MG PO (05:46)
== END 2024-12-09 05:55 | disposition home or self-care (01) ==
LOC: ED 05:04
DX: S70.11XA Contusion of right thigh, initial encounter (principal); F17.200 Nicotine dependence, unspecified, uncomplicated; Z88.0 Allergy status to penicillin; Z88.6 Allergy status to analgesic agent; Z88.4 Allergy status to anesthetic agent; Z88.2 Allergy status to sulfonamides; Z79.899 Other long term (current) drug therapy; Z98.890 Other specified postprocedural states; Z90.89 Acquired absence of other organs; W54.0XXA Bitten by dog, initial encounter; Y93.89 Activity, other specified; Y92.89 Other specified places as the place of occurrence of the external cause; Y99.8 Other external cause status

== ENCOUNTER 2024-12-27 15:14 | Emergency (ER) | payer OTHER ==
[~2024-12-27] VITALS: Ht 160 cm; Wt 64.9 kg
[2024-12-27 16:18] LABS: BILIRUBIN Negative (Negative); BLOOD Negative (Negative); CLARITY Clear (Clear); COLOR Yellow (Yellow); KETONE Negative (Negative); LEUKO ESTERASE Negative (Negative); NITRITE Negative (Negative); PH 5.5 (4.5-8.0); SPECIFIC GRAVITY 1.015 (1.001-1.030); UROBILINOGEN 0.2 E.U./dl (0.0-1.0)
[2024-12-27 16:35] LABS: BACTERIA 1+; EPITHELIAL CELLS 31-40
[2024-12-27 16:43] LABS: BASO # 0.0 10*3/uL (0.0-0.1); BASO % 0.2 % (0.0-1.0); EOS # 0.1 10*3/uL (0.0-0.4); EOS % 1.7 % (1.0-4.0); MEAN CELL VOLUME 88.6 fl (81.0-99.0); MEAN CORPUSCULAR HGB 27.3 pg (27.0-31.0); MEAN PLATELET VOLUME 10.0 fl (9.6-12.3); MONO # 0.5 10*3/uL (0.1-1.0); MONO % 9.0 % (3.0-9.0); NEUT # 3.6 10*3/uL (2.3-7.9); NEUT % 59.7 % (47.0-73.0); NUCLEATED RED BLOOD CELL 0.0 % (0.0-0.0); NUCLEATED RED BLOOD CELL 0.0 10*3/uL (0.0-0.0); PLATELET COUNT AUTOMATED 276 10*3/uL (130-400); RED CELL DISTRI WIDTH 16.6 % (0-14.5)
[2024-12-27 17:28] LABS: BUN 9 mg/dl (9-23)
[2024-12-27] MEDS ORDERED: VIBRAMYCIN100 MG PO (17:36)
[2024-12-27] MEDS ORDERED: Doxycycline Hyclate 100 MG 2 TAB ED PACK PO SCH (17:40)
== END 2024-12-27 17:58 | disposition home or self-care (01) ==
LOC: ED 15:14
PROVIDERS: Nurse Practitioner Family
DX: L73.9 Follicular disorder, unspecified (principal)